=== PATIENT | female | born 1960 | race Caucasian/White ===

== ENCOUNTER → 2018-12-24 09:29 | Outpatient (CLI) | payer OTHER, SELFPAY ==
--- NOTE | 2018-12-24 09:33 | BI_ITS ---
MAMMOGRAPHY - BILATERAL SCREENING REASON FOR EXAM: Female, 58 years old. Routine annual screening examination. PERTINENT HISTORY: Non-contributory. TECHNIQUE: Digital bilateral breast alma (3D mammographic acquisition) in the CC and MLO projections. 2-D mediolateral oblique (MLO) and craniocaudad (CC) views of both breasts were obtained. CAD: Full Field Digital Mammography with Computer Added Detection was performed. COMPARISON: Comparison is made with prior examination of January 03, 2016 and July 06, 2012. FINDINGS: Breast Composition: There are scattered areas of fibroglandular density. There are no dominant masses or suspicious calcifications. Stable benign-appearing left axillary lymph nodes. No other significant abnormalities are identified. There has been no significant change since the prior study. BI/SCREENING MAMM (CAD), BILAT IMPRESSION: Stable bilateral screening mammogram. Yearly follow-up mammogram recommended. (A) ASSESSMENT CATEGORY: BIRADS Category 2: Benign. A letter regarding these results will be sent to the patient by the facility within 30 days. Approximately 10% of breast cancers are not detected by mammography. A normal mammogram should not delay biopsy of a clinically suspicious abnormality. [id number] Electronically Signed: Demian Mccartney, at 10:17 EDT , Service support ,
== END ==
PROVIDERS: Family Provider Family Medicine; PCP Family Medicine; Visit Provider Internal Medicine
DX: Z12.31 Encounter for screening mammogram for malignant neoplasm of breast (principal)
CPT/HCPCS: 77063; 77067

== ENCOUNTER 2019-01-02 08:07 | Emergency (ER) | payer OTHER, SELFPAY ==
[2019-01-02 08:08] VITALS: BP 157/102; PULSE 70; RESP 22; TEMP 36.7; O2SAT 97; BMI 34.3
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
[2019-01-02] MEDS: Morphine 4 MG/ML Syringe IV ×2 (08:27→11:22)
[2019-01-02] MEDS: diazePAM 5 MG Tablet PO (08:27)
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
[2019-01-02 09:01] LABS: Anion Gap 5 (5-15); BUN 22 mg/dL (7-18); Calcium,Total 8.8 mg/dL (8.5-10.1); Chloride 106 mmol/L (98-107); Creatinine, Serum 0.96 mg/dL (0.55-1.02); EST Glomerular Filtration Rate 64 mL/min (>60); Est Glom Filt Rate - Afr Amer 78 mL/min (>60); Estimated Creatinine Clearance 54.13 ml/min; Glucose 107 mg/dL (74-106); Potassium 4.3 mmol/L (3.5-5.1); Sodium Level 133 mmol/L (136-145)
[2019-01-02 09:09] VITALS: BP 151/106; PULSE 66; RESP 20; O2SAT 97
[2019-01-02 10:39] VITALS: BP 154/74; PULSE 76; RESP 20; O2SAT 97
--- NOTE | 2019-01-02 11:00 | NURSING ---
ACCEPTED AT [facility] THROUGH ER
--- NOTE | 2019-01-02 11:23 | NURSING ---
CALLED [facility] ETA IS 30 TO 45 MIN
--- NOTE | 2019-01-02 11:28 | CASEMGMT ---
According to [facility], patient can be transferred to [facility], [facility], [facility], [facility]. Frank Garcia RNCM
[2019-01-02 12:29] VITALS: BP 150/77; PULSE 77; RESP 18; O2SAT 96
== END 2019-01-02 12:30 | disposition home or self-care (01) ==
PROVIDERS: Emergency Provider Emergency Medicine; Family Provider Family Medicine; PCP Family Medicine
DX: S22.22XA Fracture of body of sternum, initial encounter for closed fracture (principal); S32.019A Unspecified fracture of first lumbar vertebra, initial encounter for closed fracture; F32.9 Major depressive disorder, single episode, unspecified; Z79.899 Other long term (current) drug therapy; V43.52XA Car driver injured in collision with other type car in traffic accident, initial encounter; Y93.I9 Activity, other involving external motion; Y92.410 Unspecified street and highway as the place of occurrence of the external cause; Y99.8 Other external cause status
CPT/HCPCS: 71275; 72131; 80048; 84484; 93005; 96374; 96376; 99285; J7030; Q9967

== ENCOUNTER 2022-08-09 12:16 | Emergency (ER) | payer OTHER, SELFPAY ==
[2022-08-09 12:17] VITALS: BP 194/116; PULSE 64; RESP 18; TEMP 36.3; O2SAT 99; BMI 35.2
--- NOTE | 2022-08-09 12:39 | ED.VIS.GI ---
HPI HPI - GI History of Present Illness Chief Complaint: Abd Pain Informant: patient Abdominal Pain/Flank Pain Onset: Today Context: Sudden Onset Timing: Continuous Quality: Cramping Location: Diffuse Worsened by: Nothing Relieved by: Nothing Nausea/Vomiting/Emesis GI Symptom: Positive for Nausea and Vomiting Quality: Positive for Nonbilious; Negative for Blood streaks, Coffee ground or Hematemesis Diarrhea/Melena/Hematochezia GI Symptom: Negative for Diarrhea, Melena or Hematochezia Associated Symptoms Associated Symptoms: Negative for Dysuria, Frequency or Hematuria Narrative Narrative: Patient presents with abdominal pain that began today. Patient states it woke her up around 4 AM today. Patient states it has been constant. Patient describes it as cramping. Patient states it is diffuse across her abdomen. Patient states nothing makes it better nothing makes it worse. Patient admits to some nausea and vomiting. Patient denies any hematemesis or coffee-ground emesis. Patient denies any diarrhea, melena, or hematochezia. Patient denies any urinary complaints. PFSH PFSH Home Medications citalopram 40 mg tablet 40 mg PO DAILY 12/19/13 [History Last Taken Unknown] levothyroxine 100 mcg tablet (Synthroid) 125 mcg PO DAILY 12/19/13 [History Last Taken Unknown] ondansetron 4 mg disintegrating tablet 4 mg PO Q8H PRN PRN Nausea #10 tabs 08/09/22 [Rx Last Taken Unknown] Allergy/AdvReac Type Severity Reaction Status Date / Time adhesive AdvReac Rash Verified 08/09/22 12:16 Surgical History (Updated 08/09/22 @ 12:[address] Adolfo Gonzalez DO) H/O section History of hysterectomy Social History Smoking Status: Former smoker ROS ROS ED Constitutional Constitutional ED: Reports chills and subjective; Denies fever(s) Eyes Eyes: Denies blurry vision or change in vision ENT ENT ED: Denies rhinorrhea or sore throat Cardiovascular Cardiovascular: Denies chest pain or palpitations Respiratory/Chest Respiratory/Chest: Denies cough or dyspnea Gastrointestinal Gastrointestinal: Reports abdominal pain, nausea and vomiting; Denies diarrhea or melena Genitourinary Genitourinary ED: Denies dysuria or hematuria Musculoskeletal Musculoskeletal: Denies back pain or neck pain Integumentary Denies abscess or rash Neurologic Neurologic: Reports headache(s); Denies weakness Allergic/Immunologic Allergic/Immunologic ED: Denies mouth swelling or urticaria EXAM Physical Exam Const Vital Signs: 08/09/22 12:17 Temperature 97.3 F L Temperature Source Temporal Pulse Rate 64 Respiratory Rate 18 Blood Pressure 194/116 H Blood Pressure Mean 142 Pulse Ox 99 Positive well nourished and well developed General Appearance ED: well developed HEENT Reports moist mucous membranes Neck supple and no JVD Resp normal respiratory effort and clear to auscultation bilaterally Cardio regular rate, regular rhythm and no murmurs GI normal to inspection, nondistended, normoactive bowel sounds Palpation: soft and tender epigastric, LUQ and RUQ; Negative for guarding or rebound tenderness present Extremity normal to inspection General Extremety ED: Negative for edema or tenderness General Extremity: Negative for edema Neuro oriented x3, CN's II-XII intact bilaterally and no sensory deficits noted Sensorium / Orientation: alert Motor Exam: strength 5/5 throughout Psych mental status grossly normal Skin no rashes or lesions noted MDM MDM MDM Narrative Medical decision making narrative: Patient was given IV fluids, morphine, and Zofran. CBC was within normal limits. Comprehensive metabolic profile was within normal limits. Lipase was normal. Urinalysis does not show any evidence of urinary tract infection or hematuria. CT scan of the abdomen pelvis was obtained. There is no acute abnormality noted. This was interpreted by the radiologist and reviewed by myself. Patient was advised of her findings. Patient is feeling better on reevaluation. Patient was instructed to start with a bland diet and advance her diet as tolerated. Patient was given a prescription for Zofran. Patient was instructed to follow-up with her primary care physician in 5 to 7 days. Patient was instructed return if worse in any way. Patient understood and was agreeable with the plan. All questions were answered. Lab Data Attestation: I reviewed the patient's lab results. Labs: Laboratory Results - last 24 hr 08/09/22 08/09/22 08/09/22 12:41 12:41 13:00 WBC 8.8 RBC 4.42 Hgb 14.1 Hct 42.7 MCV 96.6 MCH 31.9 MCHC 33.0 RDW Std Deviation 46.1 H RDW Coeff of Tadeo 12.9 Plt Count 375 MPV 9.7 Immature Gran % (Auto) 0.500 Neut % (Auto) 73.6 H Lymph % (Auto) 17.3 L Anson % (Auto) 6.4 Eos % (Auto) 1.4 Baso % (Auto) 0.8 Absolute Neuts (auto) 6.5 Absolute Lymphs (auto) 1.51 Nucleated RBC % 0 Sodium 136 Potassium 4.3 Chloride 102 Carbon Dioxide 24.0 Anion Gap 10 BUN 18 Creatinine 0.67 Estim Creat Clear Calc 73.86 Est GFR (MDRD) Af Amer 115 Est GFR (MDRD) Non-Af 95 BUN/Creatinine Ratio 26.7 H Glucose 126 H Calcium 9.3 Total Bilirubin 0.50 AST 19 ALT 28 Alkaline Phosphatase 101 Total Protein 7.7 Albumin 3.8 Globulin 3.9 Albumin/Globulin Ratio 1.0 Lipase 82 Urine Color Yellow Urine Clarity Clear Urine pH 7.0 Ur Specific P[place] 1.010 Urine Protein Negative Urine Glucose (UA) Normal Urine Ketones 50 H Urine Occult Blood 10 H Urine Nitrite Negative Urine Bilirubin Negative Urine Urobilinogen Normal Ur Leukocyte Esterase Negative Urine RBC 0 SEEN Urine WBC 0 SEEN Ur Squamous Epith Cells 0 SEEN Urine Bacteria 0 SEEN Urine Mucus 0 SEEN Radiography Diagnostic Testing: Clinical Impression(s) from Imaging Studies Abdomen/Pelvis CT 08/09/22 12:45 IMPRESSION: Normal enhanced CT of the abdomen and pelvis. Electronically Signed: Xiang Ziegler MD at 15:08 EDT , Discharge Plan Triage Chief Complaint: Abd Pain ED Provider: Adolfo Gonzalez Dx/Rx/DC Orders Clinical Impression: Abdominal pain, Nausea and vomiting Instructions: ED Abdominal Pain Unkn Cause Fem, ED Vomiting (Adult) Prescriptions: New ondansetron [ondansetron] 4 MG tablet 4 mg PO Q8H PRN PRN (Reason: Nausea) Qty: 10 0RF No Action citalopram 40 MG tablet 40 mg PO DAILY levothyroxine [Synthroid] 100 MCG tablet 125 mcg PO DAILY Primary Care Provider: Rosalba James Referrals: Sienna Ferreira MD [Med Staff - [employer]] - 3-5 Days Disposition Disposition: Home, Self Care
--- NOTE | 2022-08-09 12:45 | CT_ITS ---
STUDY: CT ABDOMEN AND PELVIS WITH CONTRAST REASON FOR EXAM: Female, 62 years old. Abdominal pain -- IV PO Contrast RADIATION DOSAGE (If Supplied By Facility): CTDIvol = ( 16.90 ) mGy, DLP = ( 1145.29 ) mGycm TECHNIQUE: Transaxial images were obtained from the dome of the diaphragm to the symphysis pubis with oral contrast. Oral and amp; IV Gastrografin and amp; 100mL Isovue-370 was administered. Sagittal and coronal images were reconstructed. Individualized dose optimization techniques were used for this CT. COMPARISON: 07/11/2015 FINDINGS: The visualized lung bases are unremarkable. The visualized portions of the heart are within normal limits. Normal liver. Normal gallbladder and extrahepatic biliary system. Normal spleen. Normal pancreas. Normal bilateral adrenal glands. Normal right kidney. Normal left kidney. Normal visualized stomach. Normal small intestine. Normal colon. The appendix is visualized and appears normal. Normal abdominal aorta. Normal inferior vena cava. Normal retroperitoneum. Normal urinary bladder. There is a small umbilical hernia containing fat. Chronic mild wedge compression fracture of L1 treated with vertebroplasty. CT/Abdomen/Pelvis WITH Contrast IMPRESSION: Normal enhanced CT of the abdomen and pelvis. Electronically Signed: Xiang Ziegler MD at 15:08 EDT ,
[2022-08-09 12:53] LABS: Absolute Lymphocyte Count 1.51 X10^3/uL (0.83-4.51); Absolute Neutrophil Count 6.5 X10^3/uL (2.0-7.7); Basophil# 0.07 X10^3/uL; Basophil% 0.8 % (0-1); Eosinophil# 0.12 X10^3/uL; Eosinophils% 1.4 % (0-5); Hematocrit 42.7 % (37-47); Hemoglobin 14.1 g/dL (12.0-15.0); Lymphocyte # 1.51 X10^3/ul (0.83-4.51); Lymphocyte % 17.3 % (19-41); Mean Corpuscular Hgb 31.9 pg (27.0-32.0); Mean Corpuscular Volume 96.6 fL (81-99); Mean Platelet Vol. 9.7 fl (6.2-12.0); Monocyte# 0.56 X10^3/uL; Monocyte% 6.4 % (0-10); NRBC Flagged by Analyzer 0 % (0-5); Neutrophil # 6.45 X10^3/uL (2.7-7.7); Neutrophil % 73.6 % (47-70); Platelet Count 375 K/mm3 (150-450); RBC Distribution Width CV 12.9 % (11.6-14.6); RBC Distribution Width SD 46.1 fl (35.1-43.9); Red Blood Count 4.42 M/mm3 (4.2-5.4); White Blood Count 8.8 K/mm3 (4.4-11.0)
[2022-08-09] MEDS: 0.9% Normal Saline 1,000 ML 1000 ML IV (13:01)
[2022-08-09] MEDS: Ondansetron 4 MG/2 ML Vial IV ×2 (13:01→13:44)
[2022-08-09] MEDS: Morphine 4 MG/ML Syringe IV ×2 (13:01→14:17)
[2022-08-09 13:06] LABS: Bacteria 0 SEEN /hpf (None Seen); Mucous, Urine 0 SEEN /hpf (<or=2+); Red Blood Cells-Urine 0 SEEN /hpf (0-5); Squamous Epithelial Cells - UA 0 SEEN /hpf (5-10); White Blood Cells 0 SEEN /hpf (0-5)
[2022-08-09 13:14] LABS: Color, Urine Yellow (Yellow); Glucose, Dipstick Normal (Normal); Ketone-Dipstick 50 mg/dl (Negative); Leukocyte Esterase-Dipstick Negative /ul (Negative); Nitrite-Dipstick Negative (Negative); Occult Blood-Urine 10 /ul (Negative); Protein-Dipstick Negative (Negative); Urine Bilirubin Dipstick Negative (Negative); Urine Clarity Clear (Clear); Urine Urobilinogen Normal (Normal)
[2022-08-09 13:15] LABS: AST(SGOT) 19 U/L (15-37); Alanine Aminotransfer ALT/SGPT 28 U/L (13-56); Albumin, Serum 3.8 g/dL (3.2-5.0); Alkaline Phosphatase 101 U/L (45-117); Anion Gap 10 (5-15); BUN 18 mg/dL (7-18); BUN/Creat Ratio 26.7 RATIO (10-20); Calcium,Total 9.3 mg/dL (8.5-10.1); Chloride 102 mmol/L (98-107); Creatinine, Serum 0.67 mg/dL (0.55-1.02); EST Glomerular Filtration Rate 95 mL/min (>60); Est Glom Filt Rate - Afr Amer 115 mL/min (>60); Estimated Creatinine Clearance 73.86 ml/min; Globulin 3.9 g/dL (2.2-4.2); Glucose 126 mg/dL (74-106); Lipase 82 U/L (73-393); Potassium 4.3 mmol/L (3.5-5.1); Protein, Total 7.7 g/dL (6.4-8.2); Sodium Level 136 mmol/L (136-145)
== END 2022-08-09 15:40 | disposition home or self-care (01) ==
PROVIDERS: Emergency Provider Emergency Medicine; PCP Internal Medicine; Visit Provider Emergency Medicine
DX: R11.2 Nausea with vomiting, unspecified (principal); R10.9 Unspecified abdominal pain; Z87.891 Personal history of nicotine dependence
CPT/HCPCS: 74177; 80053; 81001; 83690; 85025; 96361; 96374; 96375; 96376; 99283; Q9967; A4216; J2405

== ENCOUNTER → 2022-09-28 | Outpatient (CLI) | payer OTHER, SELFPAY ==
[2022-09-28 12:26] LABS: Absolute Neutrophil Count 12.7 X10^3/uL (2.0-7.7); Basophil# 0.07 X10^3/uL; Basophil% 0.4 % (0-1); Eosinophil# 0.25 X10^3/uL; Eosinophils% 1.6 % (0-5); Hematocrit 41.1 % (37-47); Hemoglobin 13.8 g/dL (12.0-15.0); Lymphocyte % 11.5 % (19-41); Mean Corp Hgb Conc 33.6 g/dL (32-36); Mean Corpuscular Hgb 32.9 pg (27.0-32.0); Mean Corpuscular Volume 97.9 fL (81-99); Mean Platelet Vol. 10.3 fl (6.2-12.0); Monocyte# 0.81 X10^3/uL; Monocyte% 5.2 % (0-10); NRBC Flagged by Analyzer 0 % (0-5); Platelet Count 389 K/mm3 (150-450); RBC Distribution Width SD 46.1 fl (35.1-43.9); White Blood Count 15.7 K/mm3 (4.4-11.0)
[2022-09-28 13:03] LABS: Vitamin D,25 Hydroxy 29.2 ng/mL
[2022-09-28 13:23] LABS: ALB/GLOB Ratio 1.1 RATIO (0.9-2.4); AST(SGOT) 15 U/L (15-37); Alanine Aminotransfer ALT/SGPT 27 U/L (13-56); Albumin, Serum 3.7 g/dL (3.2-5.0); Alkaline Phosphatase 89 U/L (45-117); Anion Gap 9 (5-15); BUN 11 mg/dL (7-18); BUN/Creat Ratio 19.6 RATIO (10-20); Chloride 108 mmol/L (98-107); Cholesterol 248 mg/dL (200); Creatinine, Serum 0.56 mg/dL (0.55-1.02); EST Glomerular Filtration Rate 117 mL/min (>60); Est Glom Filt Rate - Afr Amer 142 mL/min (>60); Globulin 3.5 g/dL (2.2-4.2); Glucose 107 mg/dL (74-106); High Density Lipoprotein 78 mg/dL; Potassium 4.6 mmol/L (3.5-5.1); Protein, Total 7.2 g/dL (6.4-8.2); Sodium Level 138 mmol/L (136-145); T4 Free Direct 1.18 ng/dL (0.76-1.46); Thyroid Stim Hormone (TSH) 0.02 uIU/mL (0.358-3.74); Triglycerides 118 mg/dL; Very Low Density Lipoprotein 24 mg/dL (5-40)
[2022-09-29 14:55] LABS: Hemoglobin A1c 5.6 % (3.8-5.6)
[2022-09-30 11:03] LABS: Thyroglobulin Antibody 15.4 IU/mL (0.0-0.9); Thyroid Peroxidase AB 183 IU/mL (0-34)
== END | disposition home or self-care (01) ==
LOC: MFPLAB 10:25
PROVIDERS: PCP Family Medicine; Visit Provider Family Medicine
DX: E03.9 Hypothyroidism, unspecified (principal); M85.80 Other specified disorders of bone density and structure, unspecified site; R73.09 Other abnormal glucose
CPT/HCPCS: 36415; 80053; 80061; 82306; 83036; 84439; 84443; 85025; 86376; 86800

== ENCOUNTER → 2022-10-06 | Outpatient (CLI) | payer OTHER, SELFPAY ==
--- NOTE | 2022-10-06 13:39 | US_ITS ---
STUDY: THYROID ULTRASOUND REASON FOR EXAM: Female, 62 years old. nodule -- HAS CT AFTER TECHNIQUE: Ultrasound evaluation of the thyroid was performed with real-time and static mora-scale imaging. COMPARISON: None. FINDINGS: RIGHT LOBE: The right lobe of the thyroid gland measures 3.7 x 1.4 x 1.0 cm. There is a heterogeneous echotexture. There are no demonstrated solid, cystic or complex lesions. LEFT LOBE: The left lobe of the thyroid gland measures 2.5 x 1.4 x 1.3 cm. There is a heterogeneous echotexture. There are no demonstrated solid, cystic or complex lesions. ISTHMUS: The isthmus measures 3 mm. The regional lymph nodes are normal. US/Thyroid IMPRESSION: 1. Small/hypoplastic thyroid gland with a heterogeneous echotexture but no dominant or focal nodules or other lesions are present. This is likely sequela of chronic thyroiditis or possibly posttreatment related changes. Electronically Signed: Harry Love MD at 14:40 EST ,
--- NOTE | 2022-10-06 13:39 | CT_ITS ---
EXAM: CT CHEST, LUNG CANCER SCREENING WITHOUT INTRAVENOUS CONTRAST CLINICAL INDICATION: history of tobacco use TECHNIQUE: Helically acquired images were obtained of the chest without intravenous contrast using low dose (LDCT) lung cancer screening protocol. This CT exam was performed using one or more of the following dose reduction techniques: automated exposure control, adjustment of the mA and/or kV according to patient size, and/or use of iterative reconstruction technique. This report was created using [employer] report generation technology. COMPARISON: CTA chest dated 01/02/2019 FINDINGS: LUNGS AND PLEURAL SPACES: Unremarkable. No mass. No consolidation or edema. No pleural effusion or thickening. No pneumothorax. HEART: Unremarkable. Heart size is normal. No pericardial effusion. No significant coronary artery calcifications. MEDIASTINUM: Unremarkable. No mediastinal or hilar adenopathy. Esophagus is unremarkable. No hiatal hernia. THYROID: Unremarkable. No thyroid lesions. BONES/JOINTS: Unremarkable. No suspicious lytic or blastic abnormality. VASCULATURE: Unremarkable. Thoracic aorta is non-dilated. LYMPH NODES: Unremarkable. No enlarged lymph nodes. CT/Low Dose CT Lung Screening IMPRESSION: 1. Lung-RADS score: 1 - Recommend continued annual screening with low-dose CT (LDCT) in 12 months. 2. No acute pulmonary abnormality. Electronically Signed: Sonny Martinez MD at 0:03 [facility] ,
== END | disposition home or self-care (01) ==
LOC: CT 13:38
PROVIDERS: PCP Family Medicine; Referring Provider Family Medicine; Visit Provider Family Medicine
DX: E04.1 Nontoxic single thyroid nodule (principal); Z87.891 Personal history of nicotine dependence
CPT/HCPCS: 71271; 76536

== ENCOUNTER → 2022-10-22 | Outpatient (CLI) | payer OTHER, SELFPAY ==
[2022-10-22 12:22] LABS: Absolute Lymphocyte Count 1.31 X10^3/uL (0.83-4.51); Absolute Neutrophil Count 5.2 X10^3/uL (2.0-7.7); Basophil# 0.05 X10^3/uL; Basophil% 0.7 % (0-1); Eosinophil# 0.27 X10^3/uL; Eosinophils% 3.6 % (0-5); Hematocrit 40.9 % (37-47); Hemoglobin 13.4 g/dL (12.0-15.0); Lymphocyte # 1.31 X10^3/ul (0.83-4.51); Lymphocyte % 17.6 % (19-41); Mean Corp Hgb Conc 32.8 g/dL (32-36); Mean Corpuscular Volume 97.6 fL (81-99); Mean Platelet Vol. 10.6 fl (6.2-12.0); Monocyte# 0.61 X10^3/uL; Monocyte% 8.2 % (0-10); NRBC Flagged by Analyzer 0 % (0-5); Neutrophil # 5.18 X10^3/uL (2.7-7.7); Neutrophil % 69.6 % (47-70); Platelet Count 338 K/mm3 (150-450); RBC Distribution Width CV 13.3 % (11.6-14.6); RBC Distribution Width SD 47.6 fl (35.1-43.9); Red Blood Count 4.19 M/mm3 (4.2-5.4); White Blood Count 7.4 K/mm3 (4.4-11.0)
== END | disposition home or self-care (01) ==
LOC: MFPLAB 10:07
PROVIDERS: PCP Family Medicine; Visit Provider Family Medicine
DX: D72.829 Elevated white blood cell count, unspecified (principal)
CPT/HCPCS: 36415; 85025

== ENCOUNTER → 2022-11-05 | Outpatient (CLI) | payer OTHER, SELFPAY ==
--- NOTE | 2022-11-05 13:03 | BD_ITS ---
STUDY: DUAL ENERGY X-RAY ABSORPTIOMETRY / DXA REASON FOR EXAM: Female, 62 years old. 733.90OsteopeniaBONE DENSITY REASON FOR EXAM TECHNIQUE: Bone Mineral Density (BMD) measurements of lumbar spine and bilateral hips were obtained. COMPARISON: None. FINDINGS: Lumbar Spine (L1-L4): g/cm2 (0.793) / T-score (-2.6) / Z-score (-1.1) Findings are suggestive of osteoporosis with a high fracture risk. Left Femur Total: g/cm2 (0.681) / T-score (-2.1) / Z-score (-1.2) Left Femoral Neck: g/cm2 (0.582) / T-score (-2.4) / Z-score (-1.1) Right Femur Total: g/cm2 (0.741) / T-score (-1.6) / Z-score (-0.7) Right Femoral Neck: g/cm2 (0.577) / T-score (-2.5) / Z-score (-1.1) BD/Dexa Bone Density Study IMPRESSION: The patient is considered osteoporotic as outlined below according to World Angel Organization (WHO) criteria with a high fracture risk. Reference Information: The T-score is the number of standard deviations above or below the standard which is normal for young adults at their peak bone mineral density. The World Health Organization (WHO) interprets the T-scores as follows: Above -1 Normal bone density Between -1 and -2.5 Osteopenia Equal to / or below -2.5 Osteoporosis As a practical clinical guideline, osteopenia may be graded as follows: Mild -1 through -1.5 Moderate -1.6 through -2.0 Severe -2.1 through -2.4 The Z-score is the number of standard deviations above or below age-matched controls. A Z-score of less than -1.5 would be considered abnormal. References: 1. NIH Osteoporosis and Related Bone Diseases www osteo.org 2. International Society for Clinical Densitometry www iscd.org 3. National Osteoporosis Foundation www nof.org Electronically Signed: Demian Mccartney MD at 13:05 EST ,
== END | disposition home or self-care (01) ==
LOC: OPBD 12:48
PROVIDERS: PCP Family Medicine; Visit Provider Family Medicine
DX: M81.0 Age-related osteoporosis without current pathological fracture (principal); M85.80 Other specified disorders of bone density and structure, unspecified site
CPT/HCPCS: 77080

== ENCOUNTER → 2022-12-02 | Outpatient (CLI) | payer OTHER, SELFPAY ==
[2022-12-02 15:39] LABS: Absolute Lymphocyte Count 1.57 X10^3/uL (0.83-4.51); Basophil# 0.07 X10^3/uL; Basophil% 1.1 % (0-1); Eosinophils% 4.5 % (0-5); Hematocrit 37.8 % (37-47); Hemoglobin 12.2 g/dL (12.0-15.0); Lymphocyte # 1.57 X10^3/ul (0.83-4.51); Lymphocyte % 23.7 % (19-41); Mean Corp Hgb Conc 32.3 g/dL (32-36); Mean Corpuscular Hgb 31.9 pg (27.0-32.0); Mean Corpuscular Volume 98.7 fL (81-99); Monocyte# 0.62 X10^3/uL; Monocyte% 9.4 % (0-10); NRBC Flagged by Analyzer 0 % (0-5); Neutrophil # 4.04 X10^3/uL (2.7-7.7); Platelet Count 313 K/mm3 (150-450); RBC Distribution Width CV 12.9 % (11.6-14.6); RBC Distribution Width SD 46.5 fl (35.1-43.9); Red Blood Count 3.83 M/mm3 (4.2-5.4); White Blood Count 6.6 K/mm3 (4.4-11.0)
[2022-12-02 15:58] LABS: ALB/GLOB Ratio 0.9 RATIO (0.9-2.4); AST(SGOT) 18 U/L (15-37); Alanine Aminotransfer ALT/SGPT 27 U/L (13-56); Albumin, Serum 3.2 g/dL (3.2-5.0); Alkaline Phosphatase 75 U/L (45-117); Anion Gap 7 (5-15); BUN 14 mg/dL (7-18); Calcium,Total 8.8 mg/dL (8.5-10.1); Chloride 108 mmol/L (98-107); Cholesterol 192 mg/dL (200); Creatinine, Serum 0.67 mg/dL (0.55-1.02); EST Glomerular Filtration Rate 96 mL/min (>60); Est Glom Filt Rate - Afr Amer 116 mL/min (>60); Globulin 3.7 g/dL (2.2-4.2); Glucose 103 mg/dL (74-106); High Density Lipoprotein 73 mg/dL; Potassium 3.9 mmol/L (3.5-5.1); Protein, Total 6.9 g/dL (6.4-8.2); Sodium Level 140 mmol/L (136-145); T4 Free Direct 1.33 ng/dL (0.76-1.46); Thyroid Stim Hormone (TSH) < 0.01 uIU/mL (0.358-3.74); Triglycerides 91 mg/dL; Very Low Density Lipoprotein 18 mg/dL (5-40)
[2022-12-02 16:12] LABS: Hemoglobin A1c 5.6 % (3.8-5.6)
[2022-12-02 16:20] LABS: Vitamin D,25 Hydroxy 38.5 ng/mL
== END | disposition home or self-care (01) ==
PROVIDERS: PCP Family Medicine; Referring Provider Family Medicine; Visit Provider Family Medicine
DX: E78.5 Hyperlipidemia, unspecified (principal); R73.09 Other abnormal glucose; E03.8 Other specified hypothyroidism; M85.80 Other specified disorders of bone density and structure, unspecified site
CPT/HCPCS: 36415; 80053; 80061; 82306; 83036; 84439; 84443; 85025

== ENCOUNTER 2022-12-04 15:34 | Outpatient (CLI) | payer OTHER, SELFPAY ==
[2022-12-04 19:42] LABS: Rubella IgG Reactive (Nonreactive)
[2022-12-07 12:56] LABS: Rubeola IgG Ab > 300.0 AU/mL (Immune >16.4)
== END 2022-12-04 23:59 | disposition home or self-care (01) ==
LOC: MFPLAB 15:38
PROVIDERS: PCP Family Medicine; Referring Provider Family Medicine; Visit Provider Family Medicine
DX: Z78.9 Other specified health status (principal)
CPT/HCPCS: 36415; 86735; 86762; 86765

== ENCOUNTER → 2023-01-22 | Outpatient (CLI) | payer OTHER, SELFPAY ==
[2023-01-22 12:58] LABS: Absolute Lymphocyte Count 1.58 X10^3/uL (0.83-4.51); Absolute Neutrophil Count 2.9 X10^3/uL (2.0-7.7); Basophil# 0.08 X10^3/uL; Basophil% 1.5 % (0-1); Eosinophil# 0.35 X10^3/uL; Eosinophils% 6.5 % (0-5); Hematocrit 39.7 % (37-47); Hemoglobin 12.6 g/dL (12.0-15.0); Lymphocyte # 1.58 X10^3/ul (0.83-4.51); Lymphocyte % 29.3 % (19-41); Mean Corp Hgb Conc 31.7 g/dL (32-36); Mean Corpuscular Hgb 31.4 pg (27.0-32.0); Mean Platelet Vol. 10.9 fl (6.2-12.0); Monocyte# 0.52 X10^3/uL; Monocyte% 9.6 % (0-10); NRBC Flagged by Analyzer 0 % (0-5); Neutrophil # 2.85 X10^3/uL (2.7-7.7); Neutrophil % 52.9 % (47-70); Platelet Count 350 K/mm3 (150-450); RBC Distribution Width CV 13.2 % (11.6-14.6); RBC Distribution Width SD 48.2 fl (35.1-43.9); Red Blood Count 4.01 M/mm3 (4.2-5.4); White Blood Count 5.4 K/mm3 (4.4-11.0)
[2023-01-22 13:04] LABS: Vitamin D,25 Hydroxy 43.4 ng/mL
[2023-01-22 13:10] LABS: ALB/GLOB Ratio 0.9 RATIO (0.9-2.4); AST(SGOT) 23 U/L (15-37); Alanine Aminotransfer ALT/SGPT 31 U/L (13-56); Albumin, Serum 3.5 g/dL (3.2-5.0); Alkaline Phosphatase 80 U/L (45-117); Anion Gap 8 (5-15); BUN 11 mg/dL (7-18); BUN/Creat Ratio 19.7 RATIO (10-20); Calcium,Total 8.8 mg/dL (8.5-10.1); Chloride 109 mmol/L (98-107); Cholesterol 196 mg/dL (200); Creatinine, Serum 0.56 mg/dL (0.55-1.02); EST Glomerular Filtration Rate 117 mL/min (>60); Est Glom Filt Rate - Afr Amer 142 mL/min (>60); Globulin 3.8 g/dL (2.2-4.2); Glucose 90 mg/dL (74-106); High Density Lipoprotein 81 mg/dL; Potassium 4.5 mmol/L (3.5-5.1); Protein, Total 7.3 g/dL (6.4-8.2); Sodium Level 141 mmol/L (136-145); T4 Free Direct 1.21 ng/dL (0.76-1.46); Thyroid Stim Hormone (TSH) 0.02 uIU/mL (0.358-3.74); Triglycerides 92 mg/dL; Very Low Density Lipoprotein 18 mg/dL (5-40)
== END | disposition home or self-care (01) ==
LOC: MFPLAB 10:26
PROVIDERS: PCP Family Medicine; Referring Provider Family Medicine; Visit Provider Family Medicine
DX: E03.8 Other specified hypothyroidism (principal); M85.80 Other specified disorders of bone density and structure, unspecified site; E78.5 Hyperlipidemia, unspecified; D72.829 Elevated white blood cell count, unspecified
CPT/HCPCS: 36415; 80053; 80061; 82306; 84439; 84443; 85025

== ENCOUNTER → 2023-05-10 | Outpatient (CLI) | payer OTHER, SELFPAY ==
--- NOTE | 2023-05-10 15:18 | BI_ITS ---
MAMMOGRAPHY - BILATERAL SCREENING REASON FOR EXAM: Female, 63 years old. Routine annual screening examination. PERTINENT HISTORY: Non-contributory. TECHNIQUE: Digital bilateral breast peggy (3D mammographic acquisition) in the CC and MLO projections. 2-D mediolateral oblique (MLO) and craniocaudad (CC) views of both breasts were obtained. CAD: Full Field Digital Mammography with Computer Added Detection was performed. COMPARISON: Comparison is made with prior study of December 24, 2018 and January 03, 2016. FINDINGS: Breast Composition: There are scattered areas of fibroglandular density. There are no dominant masses or suspicious calcifications. Stable small benign-appearing left axillary lymph node. No other significant abnormalities are identified. There has been no significant change since the prior study. BI/SCRN MAMM (CAD)W/PEGGY BILAT IMPRESSION: Stable bilateral screening mammogram. Yearly follow-up mammogram recommended. (A) ASSESSMENT CATEGORY: BIRADS Category 2: Benign. A letter regarding these results will be sent to the patient by the facility within 30 days. Approximately 10% of breast cancers are not detected by mammography. A normal mammogram should not delay biopsy of a clinically suspicious abnormality. [id number] Electronically Signed: Demian Mccartney MD at 8:36 EDT ,
== END | disposition home or self-care (01) ==
LOC: OPBI 15:17
PROVIDERS: PCP Family Medicine; Referring Provider Family Medicine; Visit Provider Family Medicine
DX: Z12.31 Encounter for screening mammogram for malignant neoplasm of breast (principal)
CPT/HCPCS: 77063; 77067

== ENCOUNTER → 2023-07-19 | Outpatient (CLI) | payer BC, SELFPAY ==
--- NOTE | 2023-07-19 10:11 | RAD_ITS ---
STUDY: X-RAY - LEFT SHOULDER REASON FOR EXAM: Female, 63 years old. Recent fall. Pain and limitation of movement. TECHNIQUE: 4 view(s) of the shoulder. COMPARISON: None. FINDINGS: There is moderate degenerative arthrosis of the glenohumeral articulation. Normal acromioclavicular joint. Normal acromion. Nondisplaced fracture of the distal left clavicle. Degenerative spur formation along the inferior medial aspect of the proximal humeral head. The soft tissue structures are unremarkable. Normal visualized pulmonary apex. RAD/Shoulder min 2 Views IMPRESSION: Nondisplaced fracture of the lateral aspect of the left clavicle with degenerative changes of the glenohumeral joint. Electronically Signed: Demian Mccartney MD at 10:55 EDT ,
== END | disposition home or self-care (01) ==
PROVIDERS: PCP Family Medicine; Referring Provider Nurse Practitioner Family; Visit Provider Nurse Practitioner Family
DX: M25.512 Pain in left shoulder (principal)
CPT/HCPCS: 73030

== ENCOUNTER → 2023-09-08 | Outpatient (CLI) | payer BC, SELFPAY ==
[2023-09-08 17:40] LABS: Absolute Lymphocyte Count 1.68 X10^3/uL (0.83-4.51); Absolute Neutrophil Count 4.4 X10^3/uL (2.0-7.7); Basophil# 0.05 X10^3/uL; Basophil% 0.7 % (0-1); Eosinophil# 0.23 X10^3/uL; Eosinophils% 3.4 % (0-5); Hematocrit 38.5 % (37-47); Hemoglobin 12.5 g/dL (12.0-15.0); Lymphocyte # 1.68 X10^3/ul (0.83-4.51); Lymphocyte % 24.9 % (19-41); Mean Corp Hgb Conc 32.5 g/dL (32-36); Mean Corpuscular Hgb 32.3 pg (27.0-32.0); Mean Corpuscular Volume 99.5 fL (81-99); Mean Platelet Vol. 10.2 fl (6.2-12.0); Monocyte# 0.41 X10^3/uL; Monocyte% 6.1 % (0-10); NRBC Flagged by Analyzer 0 % (0-5); Neutrophil # 4.35 X10^3/uL (2.7-7.7); Neutrophil % 64.6 % (47-70); Platelet Count 331 K/mm3 (150-450); RBC Distribution Width CV 12.4 % (11.6-14.6); RBC Distribution Width SD 44.8 fl (35.1-43.9); Red Blood Count 3.87 M/mm3 (4.2-5.4); White Blood Count 6.7 K/mm3 (4.4-11.0)
[2023-09-08 18:00] LABS: ALB/GLOB Ratio 0.9 RATIO (0.9-2.4); AST(SGOT) 16 U/L (15-37); Alanine Aminotransfer ALT/SGPT 25 U/L (13-56); Albumin, Serum 3.5 g/dL (3.2-5.0); Alkaline Phosphatase 73 U/L (45-117); Anion Gap 9 (5-15); BUN 14 mg/dL (7-18); BUN/Creat Ratio 18.7 RATIO (10-20); Calcium,Total 8.5 mg/dL (8.5-10.1); Chloride 106 mmol/L (98-107); Cholesterol 237 mg/dL (200); Creatinine, Serum 0.75 mg/dL (0.55-1.02); EST Glomerular Filtration Rate 84 mL/min (>60); Est Glom Filt Rate - Afr Amer 101 mL/min (>60); Globulin 3.7 g/dL (2.2-4.2); Glucose 108 mg/dL (74-106); High Density Lipoprotein 84 mg/dL; Potassium 3.9 mmol/L (3.5-5.1); Protein, Total 7.2 g/dL (6.4-8.2); Sodium Level 140 mmol/L (136-145); T4 Free Direct 1.37 ng/dL (0.76-1.46); Thyroid Stim Hormone (TSH) 0.01 uIU/mL (0.358-3.74); Triglycerides 110 mg/dL; Very Low Density Lipoprotein 22 mg/dL (5-40)
[2023-09-08 18:07] LABS: Vitamin D,25 Hydroxy 53.6 ng/mL
== END | disposition home or self-care (01) ==
LOC: MFPLAB 15:52
PROVIDERS: PCP Family Medicine; Visit Provider Family Medicine
DX: E03.8 Other specified hypothyroidism (principal); E55.9 Vitamin D deficiency, unspecified; E78.5 Hyperlipidemia, unspecified
CPT/HCPCS: 36415; 80053; 80061; 82306; 84439; 84443; 85025

== ENCOUNTER → 2024-01-20 | Outpatient (CLI) | payer BC, SELFPAY ==
[2024-01-20 17:37] LABS: Absolute Lymphocyte Count 1.86 X10^3/uL (0.83-4.51); Basophil# 0.09 X10^3/uL; Basophil% 1.3 % (0-1); Eosinophil# 0.16 X10^3/uL; Eosinophils% 2.4 % (0-5); Hematocrit 38.7 % (37-47); Hemoglobin 12.9 g/dL (12.0-15.0); Lymphocyte # 1.86 X10^3/ul (0.83-4.51); Lymphocyte % 27.9 % (19-41); Mean Corp Hgb Conc 33.3 g/dL (32-36); Mean Platelet Vol. 11.3 fl (6.2-12.0); Monocyte# 0.51 X10^3/uL; Monocyte% 7.6 % (0-10); NRBC Flagged by Analyzer 0 % (0-5); Neutrophil # 4.04 X10^3/uL (2.7-7.7); Neutrophil % 60.7 % (47-70); Platelet Count 295 K/mm3 (150-450); RBC Distribution Width CV 12.7 % (11.6-14.6); RBC Distribution Width SD 45.5 fl (35.1-43.9); Red Blood Count 4.03 M/mm3 (4.2-5.4); White Blood Count 6.7 K/mm3 (4.4-11.0)
[2024-01-20 17:57] LABS: Vitamin D,25 Hydroxy 57.9 ng/mL
[2024-01-20 18:22] LABS: ALB/GLOB Ratio 0.9 RATIO (0.9-2.4); AST(SGOT) 27 U/L (15-37); Alanine Aminotransfer ALT/SGPT 26 U/L (13-56); Albumin, Serum 3.2 g/dL (3.2-5.0); Alkaline Phosphatase 72 U/L (45-117); Anion Gap 6 (5-15); BUN 11 mg/dL (7-18); BUN/Creat Ratio 17.4 RATIO (10-20); Chloride 109 mmol/L (98-107); Cholesterol 249 mg/dL (200); Creatinine, Serum 0.63 mg/dL (0.55-1.02); EST Glomerular Filtration Rate 101 mL/min (>60); Est Glom Filt Rate - Afr Amer 122 mL/min (>60); Globulin 3.5 g/dL (2.2-4.2); Glucose 112 mg/dL (74-106); High Density Lipoprotein 68 mg/dL; Potassium 3.7 mmol/L (3.5-5.1); Protein, Total 6.7 g/dL (6.4-8.2); Sodium Level 139 mmol/L (136-145); T4 Free Direct 1.36 ng/dL (0.76-1.46); Thyroid Stim Hormone (TSH) 0.01 uIU/mL (0.358-3.74); Triglycerides 89 mg/dL; Very Low Density Lipoprotein 18 mg/dL (5-40)
== END | disposition home or self-care (01) ==
LOC: MFPLAB 16:47
PROVIDERS: PCP Family Medicine; Visit Provider Family Medicine
DX: E03.8 Other specified hypothyroidism (principal); E55.9 Vitamin D deficiency, unspecified
CPT/HCPCS: 36415; 80053; 80061; 82306; 84439; 84443; 85025

== ENCOUNTER → 2024-05-19 | Outpatient (CLI) | payer OTHER, SELFPAY ==
[2024-05-19 16:34] LABS: Vitamin D,25 Hydroxy 56.9 ng/mL
[2024-05-19 16:46] LABS: T4 Free Direct 0.97 ng/dL (0.76-1.46); Thyroid Stim Hormone (TSH) 0.06 uIU/mL (0.358-3.74)
== END | disposition home or self-care (01) ==
LOC: BFHLAB 13:24
PROVIDERS: PCP Nurse Practitioner Family; Referring Provider Nurse Practitioner Family; Visit Provider Nurse Practitioner Family
DX: E03.9 Hypothyroidism, unspecified (principal); E55.9 Vitamin D deficiency, unspecified
CPT/HCPCS: 36415; 82306; 84439; 84443

== ENCOUNTER → 2024-05-25 | Outpatient (CLI) | payer OTHER, SELFPAY ==
--- NOTE | 2024-05-25 13:10 | BI_ITS ---
MAMMOGRAPHY - BILATERAL SCREENING 3-D TOMOSYNTHESIS REASON FOR EXAM: Female, 64 years old. SCREENING PERTINENT HISTORY: No significant family history. TECHNIQUE: 2-D mammograms and 3-D Tomosynthesis of the breast (s) were performed. CAD was performed. COMPARISON: 05/25/2024 FINDINGS: The breast composition is Extermely dense tissue. Scattered benign calcifications are seen. No dense spiculated masses or suspicious microcalcifications are identified. No architectural distortion is identified. There is no skin thickening or retraction. There has been no significant change since the prior study. BI/SCRN MAMM (CAD)W/PEGGY BILAT IMPRESSION: No mammographic signs of malignancy. Routine yearly mammograms recommended. ASSESSMENT CATEGORY: BIRADS Category 1: Negative. A letter regarding these results will be sent to the patient by the facility within 30 days. FOLLOW UP RECOMMENDATION: Yearly follow up mammogram recommended. (A) Approximately 10% of breast cancers are not detected by mammography. A normal mammogram should not delay biopsy of a clinically suspicious abnormality. Electronically Signed: Xiang Ziegler MD at 13:58 EDT ,
== END | disposition home or self-care (01) ==
LOC: OPBI 13:08
PROVIDERS: PCP Nurse Practitioner Family; Referring Provider Nurse Practitioner Family; Visit Provider Nurse Practitioner Family
DX: Z12.31 Encounter for screening mammogram for malignant neoplasm of breast (principal)
CPT/HCPCS: 77063; 77067

== ENCOUNTER → 2024-07-04 | Outpatient (CLI) | payer OTHER, SELFPAY ==
[2024-07-04 15:44] LABS: T4 Free Direct 0.99 ng/dL (0.76-1.46); Thyroid Stim Hormone (TSH) 0.083 uIU/mL (0.358-3.740)
== END | disposition home or self-care (01) ==
PROVIDERS: PCP Nurse Practitioner Family; Referring Provider Nurse Practitioner Family; Visit Provider Nurse Practitioner Family
DX: E03.9 Hypothyroidism, unspecified (principal)
CPT/HCPCS: 36415; 84439; 84443

== ENCOUNTER → 2024-09-01 | Outpatient (CLI) | payer OTHER, SELFPAY ==
[2024-09-01 12:40] LABS: T4 Free Direct 0.75 ng/dL (0.76-1.46)
== END | disposition home or self-care (01) ==
LOC: BFHLAB 10:33
PROVIDERS: PCP Nurse Practitioner Family; Referring Provider Nurse Practitioner Family; Visit Provider Nurse Practitioner Family
DX: E03.9 Hypothyroidism, unspecified (principal)
CPT/HCPCS: 36415; 84439; 84443

== ENCOUNTER → 2024-12-29 | Outpatient (CLI) | payer OTHER, SELFPAY ==
[2025-01-05 13:08] LABS: Almond <0.10 kU/L (Class 0); Clam <0.10 kU/L (Class 0); Codfish <0.10 kU/L (Class 0); Corn <0.10 kU/L (Class 0); Egg, White <0.10 kU/L (Class 0); Milk (Cow) <0.10 kU/L (Class 0); Peanut <0.10 kU/L (Class 0); SCALLOP <0.10 kU/L (Class 0); SESAME SEED <0.10 kU/L (Class 0); Shrimp <0.10 kU/L (Class 0); Soybean <0.10 kU/L (Class 0); Walnut, (Food) <0.10 kU/L (Class 0); Wheat <0.10 kU/L (Class 0)
== END | disposition home or self-care (01) ==
LOC: MTLAB 11:14
PROVIDERS: PCP Nurse Practitioner Family; Referring Provider Nurse Practitioner Family; Visit Provider Nurse Practitioner Family
DX: R19.7 Diarrhea, unspecified (principal); K59.00 Constipation, unspecified
CPT/HCPCS: 36415; 86003

== ENCOUNTER 2025-01-05 07:01 | Day surgery (SDC) | payer OTHER, SELFPAY ==
[2025-01-05] VITALS (9 sets, daily range): BP systolic 122–163; BP diastolic 73–84; PULSE 56–71; RESP 16; TEMP 36.3–36.8; O2SAT 94–98; BMI 27.7
--- NOTE | 2025-01-05 07:26 | HP.PCM_ITS ---
History and Physical Date of Admission: 01/05/25 Intake Vital Signs 08/09/2212:17 12/19/2507:38 Height 5 ft 3 in 5 ft 3 in Weight: 169 lb BMI 29.9 BP 127/89 H Blood Pressure Location Rt brachial Position Sitting Respiration 18 Pulse 71 Pulse Source Monitor Temp 98.0 F Temp Source Temporal Pulse Oximetry (%) 100 Oxygen Delivery Method room air Intake Visit Reasons: CHANGES IN BOWELS Chief Complaint: change in bowels Is patient in pain?: No Allergies adhesive Adverse Reaction (Verified 12/18/24 08:38) Rash Medications ?Medication ?Instructions ?Recorded ?Confirmed ?Type alendronate 70 mg tablet 70 mg PO QWEEK 12/18/24 History docusate sodium 50 mg capsule 50 mg PO BID 12/18/24 12/18/24 History ferrous sulfate 325 mg (65 mg 325 mg PO QDAY 12/18/24 12/18/24 History iron) tablet levothyroxine 75 mcg tablet 75 mcg PO QAM 12/18/24 History omega 9-lno-zap-fish oil 300 1 cap PO QDAY 12/18/24 12/18/24 History mg-1,000 mg capsule (Fish Oil) PFS Medical History (Updated 12/18/24 @ 09:[address] Sunil Lerner MD) Constipation Hemorrhoid Surgical History History of hysterectomy H/O section Social History (Updated 12/18/24 @ 08:38 by Nohelia Gonzáles LPN) Smoking Status: Former smoker alcohol intake: never substance use type: does not use HPI HPI HPI: Patient is a 64-year-old female here for change in bowel habits and blood in the stool. Patient notes that about 2 weeks ago she started having abdominal pain and difficulty having bowel movements. She is also seeing blood in the stool. She says it is painful to have bowel movements. ROS General General: Yes weight change; No appetite, fatigue, colon cancer, breast cancer or weakness HEENT HEENT: No difficulty swallowing, eye injury, eye surgery, swollen glands or hoarseness Endo Endocrine: Yes thyroid disease; No diabetes mellitus, thyroid cancer, Hair loss, heat intolerance or cold intolerance Skin Skin: No rash or changing moles Musc Musculoskeletal: Yes back problems and arthritis; No rheumatoid arthritis, gout or joint pain Cardio Cardiovascular: No murmur, pacemaker, heart disease, atrial fibrillation, high blood pressure, heart attack, heart stent, palpitations, shortness of breat with exertion or chest pain Psych Psychiatric: Yes anxiety; No depression or hearing voices Resp Respiratory: No shortness of breath, Yes sleep apnea, No cough, No COPD, No asthma, No emphysema and No wheezing Gastro Gastrointestinal: Yes abdominal pain, No nausea or vomiting, No diarrhea, Yes constipation, Yes blood in stool, No acid reflux, Yes hemorrhoids, No ulcers, No gallbladder problem and No black,tarry stools Jimmy Hematologic: No blood thinners, No blood disorders, No bleeding, No anemia and No blood clots Neuro Neurologic: No numbness, No tingling and No weakness Exam Const General: cooperative Orientation: alert and oriented x3 HENMT Head: normal to inspection Neck Neck: normal visual inspection and full ROM Chest Chest palpation & inspection: normal inspection of the chest Resp Effort & Inspection: normal respiratory effort Auscultation: clear to auscultation bilaterally Cardio Rate: regular rate Rhythm: regular rhythm GI Inspection: non-distended Palpation: soft and nontender Skin General: no rashes or lesions noted Neuro General: patient alert and patient oriented x3 Extrem General: full ROM Psych Appearance: grossly normal Mental Status: mental status grossly normal Assessment and Plan Assessment and Plan (1) Constipation: Status: Acute (2) Blood in the stool: Status: Acute Orders: Orders Colonoscopy Today Medications: Discontinued ondansetron Discontinued Reason: Pt no longer taking 4 mg PO Q8H PRN PRN 10 tabs 0RF Nausea Plan Patient is having constipation but she is also having blood in the stool. Her last colonoscopy was 2018. Recommend colonoscopy for to reevaluate. I explained endoscopy in detail to the patient. I explained the risks including but not limited to stroke or heart attack with anesthesia, perforation of the GI tract, bleeding, infection. I explained that any of these could necessitate further emergency surgery. The patient understands and all questions were answered sufficiently. The patient wishes to proceed with procedure. Sunil Lerner MD Pager: [facility] [address] [place] [address], [address] [place] [address] Office: I have examined the patient and the H&P has been reviewed. There are no clinical changes since date of exam.
--- NOTE | 2025-01-05 07:44 | PCM.PRE.AN2 ---
ASA Classification* ASA Classification ASA Classification: 2 Assessment & Plan Anesthesia* Anesthesia Assessment Anesthesia Assessment: Discussed sedation and/or anesthesia options, risks, benefits, and alternatives with patient/parents/legal guardian/POA. Questions invited. The patient/parents/legal guardian/POA seems to understand and agrees to proceed with anesthesia plan. Reviewed the physical assessment, medical history, allergy history and patient home medications list prior to surgery/procedure/anesthetic and documented any changes. Performed airway and anesthesia risk assessments. Anesthesia Type Anesthesia Type: MAC History Source History Obtained from:: Patient, Chart and Significant Other (spouse) Anesthesia Focused Assessment* Temperature: 98.2 F Pulse Rate: 64 Blood Pressure: 163/78 Respiratory Rate: 16 Pulse Ox: 98 Oxygen Delivery Method: Room Air Airway Assessment Mouth opens: 2 cm Mallampati Score: II Teeth Condition: Missing (2 missing teeth) Neck Range of motion (ROM): Limited ROM (mildly limited neck ROM) Focused Labs Anesthesia Preop lab: CBC WBC 6.7 K/mm3 (4.4-11.0) 01/20/24 16:48 01/20/24 RBC 4.03 M/mm3 (4.2-5.4) L 01/20/24 16:48 01/20/24 Hgb 12.9 g/dL (12.0-15.0) 01/20/24 16:48 01/20/24 Hct 38.7 % (37-47) 01/20/24 16:48 01/20/24 Plt Count 295 K/mm3 (150-450) 01/20/24 16:48 01/20/24 CHEMISTRY Potassium 3.7 mmol/L (3.5-5.1) 01/20/24 16:48 01/20/24 Sodium 139 mmol/L (136-145) 01/20/24 16:48 01/20/24 BUN 11 mg/dL (7-18) 01/20/24 16:48 01/20/24 Creatinine 0.63 mg/dL (0.55-1.02) 01/20/24 16:48 01/20/24 Glucose 112 mg/dL (74-106) H 01/20/24 16:48 01/20/24 TSH 2.330 uIU/mL (0.358-3.740) 09/01/24 10:34 09/01/24 COAG Pre-Assessment Diagnosis/Proposed Procedure Planned Operative Procedure(s): CSCOPE Anesthesia History Anesthesia History - suture gauger: Anesthesia History - suture gauger Hx Hospitalization No 01/03/25 11:19 Any Problems With Anesthesia No 01/03/25 11:19 Cholinesterase deficiency No 01/03/25 11:19 You/Your Family Experience No 01/03/25 11:19 fever (hyperthermia) with Relationship Recent Exposure to Contagious No 01/05/25 07:16 Disease Does patient have nerve No 01/03/25 11:19 stimulator Patient instructed to have device shut off --Does patient have Pacemaker No 01/05/25 07:16 or ICD? When Was Last Pacemaker Check QUESTION #4 FULL TEXT: You/Your Family Experience fever (hyperthermia) with Anesthesia Last Oral Intake Last Oral intake: Last Oral Intake NPO since 23:00 01/05/25 07:16 Meds taken in AM with sips of Yes 01/05/25 07:16 water? Meds patient instructed to see med list 01/05/25 07:16 take am of surgery PONV PONV - suture gauger: PONV - suture gauger Female Yes 01/03/25 11:19 HX of Motion Sickness No 01/03/25 11:19 HX of N/V After Surgery No 01/03/25 11:19 Non-Smoker Yes 01/03/25 11:19 Duration of Surgery greater No 01/03/25 11:19 than 60 minutes Number of Risk Factors 2 01/03/25 11:19 PONV Score Moderate Risk 01/03/25 11:19 Height & Weight Height & Weight: Anesthesia: Height & Weight Height 5 ft 3 in 01/05/25 07:16 Weight: 71 kg 01/05/25 07:16 Body Mass Index (BMI) 27.7 01/05/25 07:16 Respiratory Assessment Respiratory Assessment - suture gauger: Respiratory Tract Infection Hx - suture gauger Hx Respiratory Tract Infection Yes: 1 MONTH AGO URI/ 01/03/25 11:19 RESOLVED STOP Sleep Apnea STOP Sleep Apnea - suture gauger: STOP Sleep Apnea - suture gauger Hx Hypertension No 01/03/25 11:19 Hx Sleep Apnea Yes 01/03/25 11:19 CPAP Yes 01/03/25 11:19 BIPAP No 01/03/25 11:19 Do you snore loudly (louder than talking or can be heard Do you often feel tired/ fatigued/ sleepy during daytime? Has anyone observed you stop breathing during sleep? STOP Results Positive 01/03/25 11:19 QUESTION #5 FULL TEXT : Do you snore loudly (louder than talking or can be heard through closed doors)? 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 Specify any problems Hx of Preganancy in last 3 No 01/03/25 11:19 Months Nurse Filling Out Transfusion DSCHRIBER 01/03/25 11:19 & Questions: Date: 01/03/25 01/03/25 11:19 Time: 11:21 01/03/25 11:19 Patient unable to answer at this time (ie. confused, unrespo /Reproduction History /Reproductive History - suture gauger: /Reproductive Hx- suture gauger Hx Now No 01/03/25 11:19 Gestational Age (in weeks): EDC: Hx Hx Para Hx Section SAB No 01/03/25 11:19 PFSH Medical History (Updated 01/03/25 @ 11:28 by Rowan Law) Wears glasses Post-menopausal Depression Alcohol use Thyroid disease Low iron Restless legs Back pain Migraine headache Bloated abdomen History of IBS Former smoker CPAP (continuous positive airway pressure) dependence Constipation Hemorrhoid Home Medications ?Medication ?Instructions ?Recorded ?Last Taken ?Type docusate sodium 50 mg capsule 50 mg PO DAILY 12/18/24 Unknown History ferrous sulfate 325 mg (65 mg 325 mg PO QDAY 12/18/24 Unknown History iron) tablet levothyroxine 75 mcg tablet 75 mcg PO QAM 12/18/24 01/05/25 History omega 6-tlu-ejb-fish oil 300 1 cap PO QDAY 12/18/24 Unknown History mg-1,000 mg capsule (Fish Oil) duloxetine 60 mg capsule,delayed 60 mg PO DAILY 01/03/25 Unknown History release Allergy/AdvReac Type Severity Reaction Status Date / Time adhesive AdvReac Rash Verified 01/05/25 07:15 Surgical History (Updated 01/03/25 @ 11:28 by Rowan Law) Hx of colonoscopy Hx of arthroscopy of shoulder History of hysterectomy H/O section Social History (Updated 12/18/24 @ 08:38 by Nohelia Gonzáles LPN) Smoking Status: Former smoker alcohol intake: never substance use type: does not use Review of Systems (Anesthesia) ROS Narrative System reviewed and no additional complaints, except as documented.
--- NOTE | 2025-01-05 08:37 | PCM.POST.ANE ---
Anesthesia: Postop Eval I Current Vital Signs Temperature: 97.3 F Pulse Rate: 66 Blood Pressure: 122/73 Respiratory Rate: 16 Pulse Ox: 95 Oxygen Delivery Method: Room Air Assessment Airway patent: Yes Spontaneous unlabored respirations: Yes Mental status: Awake and Calm nausea: No Vomiting: No Anesthesia Complication: No Fluid Hydration Crystalloid volume administer (ml): 20 Total IV fluid infused: 20 Progress Note Anesthesia document: Postop Eval 1 completed: Yes
--- NOTE | 2025-01-05 08:41 | OP.CCLET_ITS ---
01/05/2025 Vasile Prasad Re : Colonoscopy procedure for Sugar Hoyos Dear Larry This procedure was performed on Sunday, January 05, 2025. My impressions and recommendations are as follows: Impressions : - The entire examined colon is normal on direct and retroflexion views. - No specimens collected. Recommendations : - Discharge patient to home. - Resume previous diet. - Continue present medications. - Repeat colonoscopy in 10 years for screening purposes. My findings are described in the full procedure note, which is enclosed. If I can be of further assistance, please feel free to contact me at Doctor phone number(s): , Work: . Sincerely, Sunil Lerner MD 01/05/2025 8:41:06 AM This report has been signed electronically.
--- NOTE | 2025-01-05 08:41 | OP.COLON_ITS ---
Patient Name: Sugar Hoyos Procedure Date: 01/05/2025 8:16 AM Date of : 1960 Age: 64 Procedure: Colonoscopy Indications: Hematochezia Providers: Sunil Lerner MD Referring MD: Vasile Prasad Medicines: Propofol per Anesthesia Patient Profile: This is a 64 year old female. Refer to note in patient chart for documentation of history and physical. Last Colonoscopy: 3 years ago. Complications: No immediate complications. Procedure: Pre-Anesthesia Assessment: - Prior to the procedure, a History and Physical was performed, and patient medications and allergies were reviewed. The patient's tolerance of previous anesthesia was also reviewed. The risks and benefits of the procedure and the sedation options and risks were discussed with the patient. All questions were answered, and informed consent was obtained. Prior Anticoagulants: The patient has taken no anticoagulant or antiplatelet agents. After reviewing the risks and benefits, the patient was deemed in satisfactory condition to undergo the procedure. After I obtained informed consent, the scope was passed under direct vision. Throughout the procedure, the patient's blood pressure, pulse, and oxygen saturations were monitored continuously. The colonoscope was introduced through the anus and advanced to the cecum, identified by appendiceal orifice and ileocecal valve. The colonoscopy was performed without difficulty. The patient tolerated the procedure well. The quality of the bowel preparation was good. The ileocecal valve, appendiceal orifice, and rectum were photographed. Scope In: 8:23:53 AM Scope Withdrawal Time 0 hours 6 minutes 14 seconds Scope Out: 8:36:06 AM Total Procedure Duration Time 0 hours 12 minutes 13 seconds Findings: The entire examined colon appeared normal on direct and retroflexion views. Impression: - The entire examined colon is normal on direct and retroflexion views. - No specimens collected. Recommendation: - Discharge patient to home. - Resume previous diet. - Continue present medications. - Repeat colonoscopy in 10 years for screening purposes. Procedure Code(s): --- Professional --- 84355, Colonoscopy, flexible; diagnostic, including collection of specimen(s) by brushing or washing, when performed (separate procedure) Diagnosis Code(s): --- Professional --- K92.1, Melena (includes Hematochezia) CPT copyright 2021 [employer]. All rights reserved. The codes documented in this report are preliminary and upon stable manager review may be revised to meet current compliance requirements. Sunil Lerner MD 01/05/2025 8:41:06 AM This report has been signed electronically. Number of Addenda: 0 Note Initiated On: 01/05/2025 8:16 AM
--- NOTE | 2025-01-05 11:42 | POSTOPAN2_ITS ---
Anesthesia Postop Eval I Sum Postop Eval Completion status Anesthesia document: Postop Eval 1 completed: Yes Anesthesia Postop Eval I Summary Anesthesia Postop Eval I Summary: Anesthesia Postop Eval I: Assessment Summary Airway patent Yes 01/05/25 08:44 SCRAP STRIPPER HAND.CHARLIEOBPilar Spontaneous unlabored Yes 01/05/25 08:44 SCRAP STRIPPER HAND.MARITZA respirations Mental status Awake,Calm 01/05/25 08:44 SCRAP STRIPPER HAND.MARITZA nausea No 01/05/25 08:44 SCRAP STRIPPER HAND.MARITZA Vomiting No 01/05/25 08:44 SCRAP STRIPPER HAND.MARITZA Anesthesia Postop Eval I: Fluid Summary Crystalloid volume administer 20 01/05/25 08:44 SCRAP STRIPPER HAND.MARITZA (ml) Colloids volume administered ( ml) Blood Product volume administered (ml) Total IV fluid infused 20 01/05/25 08:44 SCRAP STRIPPER HAND.MARITZA Anesthesia Postop Eval I: Summary Notes Anesthesia Complication No 01/05/25 08:44 SCRAP STRIPPER HANDMALLORY Anesthesia Complication Comment: Post-operative progress note Anesthesia: Postop Eval II Evaluation Mental status: Awake Pain Level: 0 nausea: No Vomiting: No Complications Anesthesia Complication: No
--- NOTE | 2025-01-05 11:42 | PCM.POSTANE2 ---
Anesthesia Postop Eval I Sum Postop Eval Completion status Anesthesia document: Postop Eval 1 completed: Yes Anesthesia Postop Eval I Summary Anesthesia Postop Eval I Summary: Anesthesia Postop Eval I: Assessment Summary Airway patent Yes 01/05/25 08:44 NEW CAR INSPECTOR.CHARLIEOBPilar Spontaneous unlabored Yes 01/05/25 08:44 NEW CAR INSPECTOR.MARITZA respirations Mental status Awake,Calm 01/05/25 08:44 NEW CAR INSPECTOR.MARITZA nausea No 01/05/25 08:44 NEW CAR INSPECTOR.MARITZA Vomiting No 01/05/25 08:44 NEW CAR INSPECTOR.MARITZA Anesthesia Postop Eval I: Fluid Summary Crystalloid volume administer 20 01/05/25 08:44 NEW CAR INSPECTOR.MARITZA (ml) Colloids volume administered ( ml) Blood Product volume administered (ml) Total IV fluid infused 20 01/05/25 08:44 NEW CAR INSPECTOR.MARITZA Anesthesia Postop Eval I: Summary Notes Anesthesia Complication No 01/05/25 08:44 NEW CAR INSPECTORMALLORY Anesthesia Complication Comment: Post-operative progress note Anesthesia: Postop Eval II Evaluation Mental status: Awake Pain Level: 0 nausea: No Vomiting: No Complications Anesthesia Complication: No
== END 2025-01-05 09:22 | disposition home or self-care (01) ==
LOC: EN 07:02 → AC 07:03
PROVIDERS: PCP Nurse Practitioner Family; Referring Provider Nurse Practitioner Family; Visit Provider Surgery
PROC: 0DJD8ZZ Inspection of Lower Intestinal Tract, Via Natural or Artificial Opening Endoscopic (ICD-10-PCS; CPT 45378; principal; 2025-01-05 07:55)
DX: K92.1 Melena (principal); K59.00 Constipation, unspecified; Z87.891 Personal history of nicotine dependence; E07.9 Disorder of thyroid, unspecified; Z79.890 Hormone replacement therapy
CPT/HCPCS: 45378; A4216

== ENCOUNTER → 2025-01-25 | Outpatient (CLI) | payer OTHER, SELFPAY ==
[2025-01-29 15:08] LABS: Endomysial Antibody IgA Negative (Negative); Immunoglobulin A 314 mg/dL (87-352); t-Transglutaminase IgA 2 U/mL (0-3)
== END | disposition home or self-care (01) ==
LOC: MTLAB 15:03
PROVIDERS: PCP Nurse Practitioner Family; Referring Provider Nurse Practitioner Family; Visit Provider Nurse Practitioner Family
DX: R19.7 Diarrhea, unspecified (principal); R19.4 Change in bowel habit
CPT/HCPCS: 82784; 83516; 86255

== ENCOUNTER → 2025-02-05 | Outpatient (CLI) | payer OTHER, SELFPAY ==
--- NOTE | 2025-02-05 11:20 | RAD_ITS ---
PROCEDURE: L/S SPINE MIN 4 VIEWS 02/05/2025 REASON FOR EXAM: BACK PAIN TECHNIQUE: AP, lateral and bilateral obliques with a repeated oblique imaging with a total of 5 total images COMPARISON: None available FINDINGS: 5 [id number] lumbar vertebral body types identified. Mild anterior wedge compression deformity with apparent vertebroplasty at L1 with left anterior curvilinear density may represent extruded material into lumbar vessel. L1 superior anterior corner fracture is age indeterminate, clinically correlate. Fragment does appear to contain methylmethacrylate. Abnormally diffusely dense/sclerotic appearing L2, L3 and L4 vertebral bodies with note of multiple appearing bilateral iliac sclerotic foci concerning for metastatic disease, clinically correlate and requires further workup. Lower lumbar facet hypertrophic degenerative appearing changes. Approximately 4 mm of anterolisthesis of L4 on L5. The disc spaces appear within limits. Suggestion of mild aortoiliac atherosclerotic calcification. Possible unilateral left L5 spondylolysis. RAD/L/S Spine Min 4 Views IMPRESSION: Mild anterior wedge compression deformity with apparent vertebroplasty at L1 wi th left anterior curvilinear density may represent extruded material into lumbar vessel. L1 superior anterior corner fracture is age indeterminate, clinically correlate. Fragment does appear to contain methylmethacrylate. Abnormally diffusely dense/sclerotic appearing L2, L3 and L4 vertebral bodies w ith note of multiple appearing bilateral iliac sclerotic foci concerning for metastatic disease, clinically correlate and requ ires further workup. Spondylosis with approximately 4 mm of anterolisthesis of L4 on L5. Possible unilateral left L5 spondylolysis. Reading Location: [id number]
== END | disposition home or self-care (01) ==
LOC: MTRAD 11:16
PROVIDERS: PCP Nurse Practitioner Family; Referring Provider Nurse Practitioner Family; Visit Provider Nurse Practitioner Family
DX: M54.50 Low back pain, unspecified (principal)
CPT/HCPCS: 72110

== ENCOUNTER → 2025-03-05 | Outpatient (CLI) | payer OTHER, SELFPAY ==
--- NOTE | 2025-03-05 09:26 | NM_ITS ---
PROCEDURE: BONE SCAN WHOLE BODY 03/05/2025 REASON FOR EXAM: BONE LESIONS TECHNIQUE: Blood flow, blood pool, and delayed phase imaging of the whole-body after radiopharmaceutical administration RADIOPHARMACEUTICAL: 27.0 mCi Technetium-99m MDP IV COMPARISON: None FINDINGS: There is abnormal radiotracer activity throughout the axial and appendicular skeleton consistent with diffuse blastic bony metastatic disease. There are lesions throughout the skull, cervical, thoracic, and lumbar spine, right and left ribs, right and left pelvis, proximal and distal right and left femur, with additional foci noted in the distal right humerus, and at the right and left wrist and right and left foot and ankle which may be degenerative. The NM/Bone Scan Whole Body IMPRESSION: There is abnormal radiotracer activity throughout the axial and appendicular [place] consistent with diffuse blastic bony metastatic disease. Reading [facility]
== END | disposition home or self-care (01) ==
PROVIDERS: PCP Nurse Practitioner Family; Referring Provider Internal Medicine Hematology & Oncology; Visit Provider Internal Medicine Hematology & Oncology
DX: M89.9 Disorder of bone, unspecified (principal)
CPT/HCPCS: 78306; A9503

== ENCOUNTER → 2025-03-07 | Outpatient (CLI) | payer OTHER, SELFPAY ==
--- NOTE | 2025-03-07 08:55 | BI_ITS ---
EXAM: DIAG MAMM W/CAD, BILAT; BILAT BRST PEGGY STAND ALONE; BREAST COMPLETE UNILATERAL 03/07/2025 CLINICAL HISTORY: 64-year-old female presents with palpable concern in the bilateral breast. No family history of breast cancer. TECHNIQUE: Bilateral Diagnostic digital breast tomosynthesis with 2D and 3D images. Computer aided detection. Also, targeted bilateral breast ultrasounds were performed. COMPARISON: Prior exam(s) dated 05/25/2024, 05/10/2023. FINDINGS: MAMMOGRAM: TISSUE DENSITY: The breast tissue is heterogenously dense, which may obscure small masses. The mammogram demonstrates that the patient has dense breasts. Supplemental screening with whole breast ultrasound or MRI may be considered for further evaluation. RIGHT BREAST: 1. There is a triangle skin marker indicating the area of palpable concern in the right breast. Underlying the skin marker is an asymmetry in the lateral right breast at middle depth best visualized on the CC view. 2. There is an irregular spiculated high density mass in the central outer right breast at posterior depth. LEFT BREAST: 1. There is a triangle skin marker indicating the area of palpable concern in the upper-outer left breast. Underlying the skin marker is an irregular spiculated high density mass at middle depth. 2. There are additional scattered irregular high density masses in the superior and central left breast. ULTRASOUND: RIGHT BREAST: 1. There are two irregular hypoechoic masses in the right breast at 10 o'clock 5 cm from the nipple, measuring up to 0.5 cm. These correlate with the patient's area of palpable concern. 2. There is a irregular hypoechoic mass in the right breast at 8 o'clock 5 cm from the nipple measuring 1.2 x 1.0 x 1.0 cm. 3. There is another irregular hypoechoic mass in the right breast at 9 o'clock 3 cm from the nipple measuring 0.9 x 0.8 x 0.7 cm. 4. There is a prominent right axillary lymph node measuring 1.2 x 0.5 x 0.8 cm in cortical thickening up to 0.3 cm. LEFT BREAST: 1. There is an irregular hypoechoic mass in the left breast at 2 o'clock 5 cm from the nipple measuring 1.2 x 1.1 x 0.8 cm. Also there is another irregular hypoechoic mass in the left breast at 2 o'clock 4 cm from the nipple measuring 1.0 x 1.0 x 0.6 cm. These correlates with the patient's area of palpable concern. 2. There are additional irregular hypoechoic masses in the left breast at 11 30 o'clock 3 cm from the nipple measuring 0.8 x 0.8 x 0.8 cm. 3. There are 2 prominent left axillary lymph nodes, the freight representative node measures 0.9 x 0.8 x 0.6 cm with cortical thickening of 0.3 cm. BI/DIAG MAMM W/CAD, BILAT IMPRESSION: Multiple scattered bilateral irregular breast masses is concerning for malignan cy, this may represent metastatic disease versus primary breast malignancy. Recommend tissue sampling with ultrasound-guided co re needle biopsy of the right breast mass at 8 o'clock 5 cm from the nipple and the left breast mass at 2 o'clock 5 cm from th e nipple for further evaluation. OVERALL FINAL ASSESSMENT: BIRADS 5 HIGHLY SUGGESTIVE OF MALIGNANCY. RECOMMENDATION: Recommend ultrasound core needle biopsy of the bilateral breast masses. A letter with findings and recommendations will be mailed to the patient. Reading Location: [id number]
--- NOTE | 2025-03-07 09:00 | BI_ITS ---
EXAM: DIAG MAMM W/CAD, BILAT; BILAT BRST PEGGY STAND ALONE; BREAST COMPLETE UNILATERAL 03/07/2025 CLINICAL HISTORY: 64-year-old female presents with palpable concern in the bilateral breast. No family history of breast cancer. TECHNIQUE: Bilateral Diagnostic digital breast tomosynthesis with 2D and 3D images. Computer aided detection. Also, targeted bilateral breast ultrasounds were performed. COMPARISON: Prior exam(s) dated 05/25/2024, 05/10/2023. FINDINGS: MAMMOGRAM: TISSUE DENSITY: The breast tissue is heterogenously dense, which may obscure small masses. The mammogram demonstrates that the patient has dense breasts. Supplemental screening with whole breast ultrasound or MRI may be considered for further evaluation. RIGHT BREAST: 1. There is a triangle skin marker indicating the area of palpable concern in the right breast. Underlying the skin marker is an asymmetry in the lateral right breast at middle depth best visualized on the CC view. 2. There is an irregular spiculated high density mass in the central outer right breast at posterior depth. LEFT BREAST: 1. There is a triangle skin marker indicating the area of palpable concern in the upper-outer left breast. Underlying the skin marker is an irregular spiculated high density mass at middle depth. 2. There are additional scattered irregular high density masses in the superior and central left breast. ULTRASOUND: RIGHT BREAST: 1. There are two irregular hypoechoic masses in the right breast at 10 o'clock 5 cm from the nipple, measuring up to 0.5 cm. These correlate with the patient's area of palpable concern. 2. There is a irregular hypoechoic mass in the right breast at 8 o'clock 5 cm from the nipple measuring 1.2 x 1.0 x 1.0 cm. 3. There is another irregular hypoechoic mass in the right breast at 9 o'clock 3 cm from the nipple measuring 0.9 x 0.8 x 0.7 cm. 4. There is a prominent right axillary lymph node measuring 1.2 x 0.5 x 0.8 cm in cortical thickening up to 0.3 cm. LEFT BREAST: 1. There is an irregular hypoechoic mass in the left breast at 2 o'clock 5 cm from the nipple measuring 1.2 x 1.1 x 0.8 cm. Also there is another irregular hypoechoic mass in the left breast at 2 o'clock 4 cm from the nipple measuring 1.0 x 1.0 x 0.6 cm. These correlates with the patient's area of palpable concern. 2. There are additional irregular hypoechoic masses in the left breast at 11 30 o'clock 3 cm from the nipple measuring 0.8 x 0.8 x 0.8 cm. 3. There are 2 prominent left axillary lymph nodes, the sales representative gas service node measures 0.9 x 0.8 x 0.6 cm with cortical thickening of 0.3 cm. BI/Bilat Brst Peggy Stand Alone IMPRESSION: Multiple scattered bilateral irregular breast masses is concerning for malignan cy, this may represent metastatic disease versus primary breast malignancy. Recommend tissue sampling with ultrasound-guided co re needle biopsy of the right breast mass at 8 o'clock 5 cm from the nipple and the left breast mass at 2 o'clock 5 cm from th e nipple for further evaluation. OVERALL FINAL ASSESSMENT: BIRADS 5 HIGHLY SUGGESTIVE OF MALIGNANCY. RECOMMENDATION: Recommend ultrasound core needle biopsy of the bilateral breast masses. A letter with findings and recommendations will be mailed to the patient. Reading Location: [id number]
== END | disposition home or self-care (01) ==
PROVIDERS: PCP Nurse Practitioner Family; Referring Provider Internal Medicine Hematology & Oncology; Visit Provider Internal Medicine Hematology & Oncology
DX: R92.30 Dense breasts, unspecified (principal); N63.11 Unspecified lump in the right breast, upper outer quadrant; N63.13 Unspecified lump in the right breast, lower outer quadrant; N63.15 Unspecified lump in the right breast, overlapping quadrants; N63.21 Unspecified lump in the left breast, upper outer quadrant; N63.22 Unspecified lump in the left breast, upper inner quadrant
CPT/HCPCS: 76641; 77062; 77066; G0279

== ENCOUNTER → 2025-03-09 | Outpatient (CLI) | payer OTHER, SELFPAY ==
--- NOTE | 2025-03-09 15:00 | BRBX_PTH ---
PATIENT: TIFFANY FERMIN LOC: [facility] U#:[id number] AGE/SX: 64/F ROOM: RE03/09/[address]: Dr. Sunil Lerner MD : 1960 BED: DIS: 03/09/2025 SPEC #: [id number] RECD: 03/09/25 15:39 STATUS: SENTHIL REQ #: [id number] JANENE: 03/09/25 15:[address]: Sunil Lerner DEPT: SURGICAL PATHOLOGY RECD BY: Alden Campos ENTERED: 03/09/25 16:18 SP TYPE: BREAST BX OTHR DR: Jolanta Juarez, FINANCE CONSULTANT-C Tissues: A - Left breast, NOS B - Right breast, NOS Procedures: Immunohistochemical Stains Surgery Specimen Level IV IHC Stain ADDITIONAL HEADER OPERATION: Ultrasound guided needle core biopsy / bilateral breasts PRE-OP DIAGNOSIS: Abnormal mammogram TISSUE SUBMITTED: A- Left breast tissue, B- Right breast tissue Ischemic Time: 1 minute Fixation Time: 12 hours MICROSCOPIC DIAGNOSIS A. Left breast, core biopsy: * Neuroendocrine carcinoma - see microscopic description and Comment. B. Right breast, core biopsy: * Neuroendocrine carcinoma - see microscopic description and Comment. COMMENT The histologic and immunophenotypic findings support a diagnosis of neuroendocrine carcinoma. Similar findings are demonstrated by the tumor metastatic to the liver (see surgical pathology report for the liver core biopsy [id number]). While primary neuroendocrine tumors in the breast can occur, they are extremely rare and are usually associated with poorly differentiated ductal carcinoma and DCIS (not observed in this tissue). Given that all IHC breast markers in this tissue are negative and there is diffuse strong positivity for CDX2, a gastrointestinal primary cannot be ruled out. Correlation with clinical and imaging findings is necessary. The findings were discussed with Dr Eugenia bauman 03/26/25. Selected slides/images were reviewed in intradepartmental ([facility]) consultation by Dr Zack Soto (breast pathology division) and at the GI pathology division consensus conference. MICROSCOPIC DESCRIPTION The routine histology demonstrates an invasive carcinoma without the typical morphology of breast ductal or lobular carcinoma. There is some crush artifact distorting the cells. Further evaluation with IHC revealed the tumor cells to be - Positive for: E-cadherin, p53 (wild type), chromogranin, and synaptophysin, with a Ki67 proliferative index of approximately 20% (as determined by manual immunohistochemical technique). Negative for: CK5/6, p40, ER, MI, HER2, GATA3, PAX8, TTF-1, TRPS1, Glypican-3, Villin, Melan-A, SOX10, BRST2, mammoglobin, calretinin, and SMMS. All matched controls reacted appropriately. These tests were developed and their performance characteristics determined by [facility]. They may not have been cleared or approved by the U.S. Food and Drug Administration. The FDA has determined that such clearance or approval is not necessary.? The above immunohistochemical/dualISH?markers are ordered and reviewed by the Pathologist. GROSS DESCRIPTION A. Received in formalin in a container labeled with the patient's name, date of , and L breast tissue are multiple head-yellow fragments of fibrofatty tissue measuring 1.4 x 0.8 x 0.2 cm in aggregate. Submitted in toto in A1. B. Received in formalin in a container labeled with the patient's name, date of , and R breast tissue are multiple head-yellow fragments of fibrofatty tissue measuring 1.8 x 0.8 x 0.2 cm in aggregate. Submitted in toto in B1. [facility] 03-09-2025 CPT:33028n9,49662g1,60449k04,[id number] ADDENDUM ADDENDUM ADDENDUM ADDENDUM ADDENDUM ADDENDUM ADDENDUM ADDENDUM ADDENDUM 04/13/2025 11:24 ADDENDUM 04/13/2025 11:24 ADDENDUM 04/13/2025 11:24 ADDENDUM 04/13/2025 11:24 ADDENDUM 04/13/2025 11:24 PD-L1 (KEYTRUDA) IMMUNOHISTOCHEMICAL ANALYSIS FROM [facility] - BLOCK A 1 RESULTS: Tumor proportion score: <1 % / Negative COMMENT: The biopsy contains sufficient (>100) viable tumor cells. A positive control for each antibody has been reviewed and accepted. Please see complete report in e-chart or EMR
== END | disposition home or self-care (01) ==
LOC: LABSPEC 15:46
PROVIDERS: PCP Nurse Practitioner Family; Referring Provider Surgery; Visit Provider Surgery
DX: D3A.8 Other benign neuroendocrine tumors (principal)
CPT/HCPCS: 88305; 88341; 88342

== ENCOUNTER → 2025-03-14 | Outpatient (CLI) | payer OTHER, SELFPAY ==
--- NOTE | 2025-03-14 12:57 | MRI_ITS ---
PROCEDURE: BRAIN W/WO CONTRAST 03/14/2025 REASON FOR EXAM: STAGING BREAST CANCER TECHNIQUE: Routine brain MRI without and with intravenous contrast. Multiplanar and multisequence images were obtained. CONTRAST: 14 cc of Clariscan FINDINGS: No hydrocephalus. No intracranial mass. No intracranial hemorrhage. No pathologic flow voids. Normal brainstem and cerebellum. No abnormal diffusion to suggest an acute or recent ischemic event. Coronal T2 weighted images demonstrate no hippocampal asymmetry. There is no Chiari deformity. There is no pathologic intracranial enhancement. There are no pathologic flow voids. The sinuses are clear. Thin-section postcontrast images are negative for dural sinus thrombosis. MRI/Brain W/WO Contrast IMPRESSION: No abnormality seen negative for metastatic disease from breast cancer intracra nially. Reading Location: [facility]
--- NOTE | 2025-03-14 14:01 | CT_ITS ---
PROCEDURE: CT CHEST, ABD, PEL W/CONTRAST 03/14/2025 REASON FOR EXAM: STAGING BREAST CANCER TECHNIQUE: Chest, abdomen and pelvis CT with intravenous contrast. Coronal and Sagittal reconstruction series were provided. One or more dose reduction techniques were used (e.g., Automated exposure control, adjustment of the mA and/or kV according to patient size, use of iterative reconstruction technique. PATIENT PREPARATION: Per protocol ORAL CONTRAST TYPE: None. CONTRAST: Isovue-300 VOLUME: 100mL RADIATION DOSE SUMMARY: CTDlvol: 12 mGy DLP: 1056.79 mGycm COMPARISON: None FINDINGS: CT CHEST: Hardware: None. Punctate calcification seen in the posterior aspect of both breasts. Lymph nodes: Small benign-appearing axillary lymph nodes. Small benign- appearing mediastinal lymph nodes. Heart and Vasculature: Minimal coronary artery calcification. Calcification of the aortic arch. Lungs and Airways: No pulmonary nodules are seen. Pleura: No pleural effusion. Bones: Multiple sclerotic metastasis involving the cervical, thoracic and lumbar vertebrae. Loss of height of the L1 vertebrae and prior vertebroplasty. CT ABDOMEN/PELVIS: Liver: Multiple irregular hypodense nodules are seen throughout both right and left lobes of the liver suggestive of metastatic deposits. Gallbladder: Unremarkable. Spleen: Normal size. Pancreas: Normal size without evidence of mass surrounding inflammation or ductal dilation. Adrenals: Unremarkable. Kidneys: Normal renal sizes. No hydronephrosis. Bladder: Unremarkable Reproductive Organs: Prior hysterectomy. Adnexal regions are unremarkable. Bowel: Colonic diverticulosis without diverticulitis. Appendix: Unremarkable. Lymph nodes: Unremarkable. Vasculature: Mild diffuse atherosclerotic calcifications are noted. Peritoneum / Retroperitoneum: Unremarkable. Bones: Diffuse metastasis of the lumbar vertebrae with loss of height of the L1 vertebrae and prior vertebroplasty. Osteoblastic metastasis involving the pelvis as well as both visualized portions of the femurs. CT/CT Chest, Abd, Pel w/Contrast IMPRESSION: Diffuse bony metastasis. Multiple hypodense masses in the liver in keeping with a hepatic metastasis. Reading Location: [id number]
== END | disposition home or self-care (01) ==
PROVIDERS: PCP Nurse Practitioner Family; Referring Provider Internal Medicine Hematology & Oncology; Visit Provider Internal Medicine Hematology & Oncology
DX: C50.911 Malignant neoplasm of unspecified site of right female breast (principal); C79.51 Secondary malignant neoplasm of bone; C77.9 Secondary and unspecified malignant neoplasm of lymph node, unspecified; C50.912 Malignant neoplasm of unspecified site of left female breast
CPT/HCPCS: 70553; 71260; 74177; A9575; Q9967

== ENCOUNTER 2025-03-16 07:59 | Outpatient (CLI) | payer OTHER, SELFPAY ==
[2025-03-16] VITALS (15 sets, daily range): BP systolic 120–189; BP diastolic 58–96; PULSE 63–88; RESP 15–28; TEMP 36; O2SAT 90–97; BMI 28.7
--- NOTE | 2025-03-16 08:16 | CT_ITS ---
PROCEDURE: BIOPSY/INJ OR NEEDLE PLACEMENT 03/16/2025 CT-guided liver biopsy. REASON FOR EXAM: STAGING BREAST CANCER TECHNIQUE: The procedure as well as the benefits and possible complications including infection and bleeding were explained to the patient. Informed consent was obtained.. The patient was in the supine position. Conscious sedation was performed. The patient received 2 mg of Versed and 50 mcg of fentanyl intravenously. Conscious sedation was started at 9:03 a.m. and terminated at 9:28 a.m.. The patient was independently monitored by the department nurse. The overlying skin was prepped and draped in the usual sterile fashion. Following local anesthetic application, 18 gauge core biopsy needle was placed into the lesion in the anterior aspect of the right lobe of the liver. 4 core biopsies were obtained. The specimen was deemed adequate by the pathologist. One or more dose reduction techniques were used (e.g., Automated exposure control, adjustment of the mA and/or kV according to patient size, use of iterative reconstruction technique). RADIATION DOSE SUMMARY: CTDlvol: 16 mGy DLP: 254.2 mGycm COMPARISON: Prior CT scan of the abdomen and pelvis dated March 14, 2025. FINDINGS: Successful CT-guided core biopsy of the right lobe of the liver. CT/Biopsy/Inj or Needle Placement IMPRESSION: Successful core biopsies of the abnormality in the anterior aspect of the right lobe of the liver as described. The patient tolerated the procedure well. No immediate complication noted. Reading Location: [place] [id number]
[2025-03-16] MEDS: 0.9% Saline Lock 10 ML Syringe IV (08:49)
[2025-03-16] MEDS: Midazolam 2 MG/2 ML Syringe IV (09:03)
[2025-03-16] MEDS: fentaNYL 100 MCG/2 ML Ampul IV (09:07)
--- NOTE | 2025-03-16 09:15 | ASPIGT_PTH ---
PATIENT: TIFFANY FERMIN LOC: [facility] U#:[id number] AGE/SX: 65/F ROOM: RE03/16/[address]: Dr. Cori Maddox MD : 1960 BED: DIS: 03/16/2025 SPEC #: [id number] RECD: 03/16/25 09:45 STATUS: SENTHIL REQ #: [id number] JANENE: 03/16/25 09:[address]: Cori Maddox DEPT: SURGICAL PATHOLOGY RECD BY: Alden Campos ENTERED: 03/16/25 09:50 SP TYPE: ASP RAD OTHR DR: Jolanta Juarez, DISTRIBUTION OPERATIONS SUPERVISOR-C Tissues: A - Liver, NOS Procedures: FNA Specimen Adequacy Immunohistochemical Stains Special Stain Group II Surgery Specimen Level IV Imprint (control) IHC Stain ADDITIONAL HEADER OPERATION: Liver biopsy PRE-OP DIAGNOSIS: Liver mass TISSUE SUBMITTED: A- Liver biopsy 18 gauge x 4 cores MICROSCOPIC DIAGNOSIS A. Liver, mass, biopsy: * Small clusters of tumor cells consistent with metastatic neuroendocrine carcinoma - see note and Comment. * Note: IHC was performed. The tumor cells are positive for Pancytokeratin, Synaptophysin, Chromogranin and CDX2. The Ki67 proliferative index appears increased but is difficult to quantitate in this limited sampling. Negative IHC includes CK7, CK20 and OCTAVIA-3. A reticulin stain demonstrates normal liver plate architecture. The tumor cells are histologically and immunophenotypically similar to the neuroendocrine carcinoma identified in bilateral breast biopsies (see surgical pathology report [id number]). The primary site of origin cannot be determined histologically. Primary breast neuroendocrine carcinomas are extremely rare and usually associated with poorly differentiated breast ductal carcinoma and DCIS which are not observed in the breast biopsies. The strong diffuse CDX2 staining raises consideration of a gastrointestinal origin. Correlation with clinical and imaging findings is necessary. COMMENT The specimen is evaluated at the time of biopsy by Dr. Gaona. Immediate Evaluation = 3. Few malignant cells present. 4. Few malignant cells present. The case was discussed with Dr Eugenia Maddox on 03/26/25 (consultation with [facility] pending). Selected slides/images were reviewed in intradepartmental ([facility]) consultation by Dr Zack Soto (breast pathology division) and at the GI pathology division consensus conference. MICROSCOPIC DESCRIPTION Slides are reviewed. All matched controls reacted appropriately. These tests were developed and their performance characteristics determined by [facility]. They may not have been cleared or approved by the U.S. Food and Drug Administration. The FDA has determined that such clearance or approval is not necessary.? The above immunohistochemical/dualISH?markers are ordered and reviewed by the Pathologist. GROSS DESCRIPTION A. Received in formalin in a container labeled with the patient's name, date of , and with the accompanying paperwork indicating, liver biopsy, liver mass are multiple head-pink fragments of soft tissue measuring 1.1 x 0.6 x 0.3 cm in aggregate. Submitted in toto in A1. [facility] 03-16-2025 CPT:75097,39774,21159,[id number],80509
[2025-03-16] MEDS: Lidocaine 2% (20 ml mdv) 20 ML Vial INFILT (09:18)
[2025-03-16 09:45] LABS: International Normalized Ratio 0.9; Prothrombin Time (Protime)PT. 12.7 SECONDS (11.7-14.9)
[2025-03-16 09:46] LABS: Partial Thromboplast Time 26.1 Seconds (24.1-36.2)
== END 2025-03-16 23:59 | disposition home or self-care (01) ==
PROVIDERS: Radiology Diagnostic Radiology; PCP Nurse Practitioner Family; Referring Provider Internal Medicine Hematology & Oncology; Visit Provider Internal Medicine Hematology & Oncology
DX: D3A.8 Other benign neuroendocrine tumors (principal)
CPT/HCPCS: 47000; 36415; 77012; 85610; 85730; 88172; 88305; 88307; 88313; 88341; 88342; 99156; A4216

== ENCOUNTER 2025-04-11 10:24 | Day surgery (SDC) | payer OTHER, SELFPAY ==
[2025-04-11] VITALS (8 sets, daily range): BP systolic 120–141; BP diastolic 54–83; PULSE 72–78; RESP 14–18; TEMP 36.3–36.5; O2SAT 95–97; BMI 27.8
[2025-04-11] MEDS: Lactated Ringers 1,000 ML 15 ML IV (11:15)
--- NOTE | 2025-04-11 11:21 | HP.PCM_ITS ---
History and Physical Date of Admission: 04/11/25 Intake Vital Signs 04/05/2510:39 04/10/2508:57 Height 5 ft 1 in 5 ft 1 in Weight: 150 lb 148 lb 4 oz BMI 28.3 28.0 BP 143/86 H 148/74 H Blood Pressure Location Rt brachial Rt brachial Position Sitting Sitting Respiration 16 18 Pulse 67 77 Pulse Source Monitor Monitor Temp 98.3 F 97.2 F L Temp Source Temporal Pulse Oximetry (%) 96 99 Oxygen Delivery Method room air room air Intake Visit Reasons: PORT PLACEMENT Chief Complaint: port placement Accompanied by: and daughter Is patient in pain?: No Allergies adhesive Adverse Reaction (Verified 04/10/25 08:59) Rash Medications ?Medication ?Instructions ?Recorded ?Confirmed ?Type docusate sodium 50 mg capsule 50 mg PO DAILY 12/18/24 04/10/25 History ferrous sulfate 325 mg (65 mg 325 mg PO QDAY 12/18/24 04/10/25 History iron) tablet levothyroxine 75 mcg tablet 75 mcg PO QAM 12/18/24 04/10/25 History omega 7-cwu-hry-fish oil 300 1 cap PO QDAY 12/18/24 04/10/25 History mg-1,000 mg capsule (Fish Oil) duloxetine 60 mg capsule,delayed 60 mg PO DAILY 01/03/25 04/10/25 History release calcium carbonate (Calcium 600) 600 mg PO BID 02/22/25 04/10/25 History ondansetron 4 mg disintegrating 4 mg PO Q8H PRN nausea and 03/08/2503/19 Rx tablet vomiting 10 days #30 tabs acetaminophen 500 mg tablet 1,000 mg PO Q6H PRN 04/05/25 04/10/25 Hi story ibuprofen 400 mg tablet 400 mg PO TID PRN 04/05/25 04/10/25 Hist ory PFSH Medical History Metastasis to liver Regional lymph node metastasis present Metastasis to bone Bilateral breast cancer Wears glasses Post-menopausal Depression Alcohol use Thyroid disease Low iron Restless legs Back pain Migraine headache Bloated abdomen History of IBS Former smoker CPAP (continuous positive airway pressure) dependence Constipation Hemorrhoid Surgical History Hx of colonoscopy Hx of arthroscopy of shoulder History of hysterectomy H/O section Family History Mother DiabetesGrandfather Cancer Social History Smoking Status: Former smoker Tobacco: How many years used: 20 alcohol intake: current alcohol intake frequency: 3 or more drinks per day Alcohol type: beer substance use type: does not use HPI HPI HPI: Patient is a 65-year-old female was recently diagnosed with neuroendocrine tumor of both breasts. There is also side metastasis and the patient is here to rosalba carranza port placement for chemotherapy. ROS General General: Yes weight change; No appetite, fatigue, colon cancer, breast cancer or weakness HEENT HEENT: No difficulty swallowing, eye injury, eye surgery, swollen glands or hoarseness Endo Endocrine: Yes thyroid disease; No diabetes mellitus, thyroid cancer, Hair loss, heat intolerance or cold intolerance Skin Skin: No rash or changing moles Breast Breast: Yes breast pain, abnormal mammogram and abnormal US; No left breast lump, right breast lump, nipple discharge or breast enlargement Additional Details: Bilateral Breasts Musc Musculoskeletal: Yes back problems and arthritis; No rheumatoid arthritis, gout or joint pain Cardio Cardiovascular: No murmur, pacemaker, heart disease, atrial fibrillation, high blood pressure, heart attack, heart stent, palpitations, shortness of breath with exertion or chest pain Psych Psychiatric: Yes anxiety; No depression or hearing voices Resp Respiratory: No shortness of breath, Yes sleep apnea, No cough, No COPD, No asthma, No emphysema and No wheezing Gastro Gastrointestinal: Yes abdominal pain, No nausea or vomiting, No diarrhea, Yes constipation, Yes blood in stool, No acid reflux, Yes hemorrhoids, No ulcers, No gallbladder problem and No black,tarry stools Jimmy Hematologic: No blood thinners, No blood disorders, No bleeding, No anemia and No blood clots Neuro Neurologic: No system reviewed and no additional complaints, except as documented, No as per HPI, No abnormal gait, No abnormal hearing, No abnormal movements, No abnormal speech, No behavioral changes, No burning sensations, No confusion, No convulsions, No disequilibrium, No dizziness, No localized weakness, No frequent falls, No headache(s), No lack of coordination, No loss of vision, No memory loss, No numbness, No other visual disturbances, No radicular pain, No restless legs, No sensory deficit, No syncope, No tingling, No tremor(s), No weakness and No other Exam Const General: cooperative Orientation: alert and oriented x3 HENMT Head: normal to inspection Neck Neck: normal visual inspection and full ROM Chest Chest palpation & inspection: normal inspection of the chest Resp Effort & Inspection: normal respiratory effort Auscultation: clear to auscultation bilaterally Cardio Rate: regular rate Rhythm: regular rhythm GI Inspection: non-distended Palpation: soft and nontender Skin General: no rashes or lesions noted Neuro General: patient alert and patient oriented x3 Extrem General: full ROM Psych Appearance: grossly normal Mental Status: mental status grossly normal Assessment and Plan Assessment and Plan (1) Encounter for insertion of venous access port: Status: Acute Plan: Patient is here to discuss port placement for chemotherapy. I discussed port placement with the patient in detail. I discussed the risks including but not limited to bleeding, infection, pneumothorax, DVT. Patient understands the risks and is willing to proceed. Plan for surgery tomorrow. Sunil Lerner MD Pager: [facility] [address] [place] [address], [address] [place] [address] Office: I have examined the patient and the H&P has been reviewed. There are no clinical changes since date of exam.
--- NOTE | 2025-04-11 11:22 | PCM.PRE.AN2 ---
ASA Classification* ASA Classification ASA Classification: 2 (B/L breast cancer, anemia, depression, hypothyroidism. TAPE ALLERGY) Assessment & Plan Anesthesia* Anesthesia Assessment Anesthesia Assessment: Discussed sedation and/or anesthesia options, risks, benefits, and alternatives with patient/parents/legal guardian/POA. Questions invited. The patient/parents/legal guardian/POA seems to understand and agrees to proceed with anesthesia plan. Reviewed the physical assessment, medical history, allergy history and patient home medications list prior to surgery/procedure/anesthetic and documented any changes. Performed airway and anesthesia risk assessments. Anesthesia Type Anesthesia Type: General History Source History Obtained from:: Patient and Chart Anesthesia Focused Assessment* Temperature: 97.4 F Pulse Rate: 72 Blood Pressure: 141/83 Respiratory Rate: 16 Pulse Ox: 96 Oxygen Delivery Method: Room Air Airway Assessment Mouth opens: >3 cm Mallampati Score: II Teeth Condition: Intact Neck Range of motion (ROM): Full ROM Labs Anesthesia Preop lab: CBC WBC 6.4 K/mm3 (4.4-11.0) 04/05/25 12:40 04/05/25 RBC 4.42 M/mm3 (4.2-5.4) 04/05/25 12:40 04/05/25 Hgb 14.5 g/dL (12.0-15.0) 04/05/25 12:40 04/05/25 Hct 42.8 % (37-47) 04/05/25 12:40 04/05/25 Plt Count 314 K/mm3 (150-450) 04/05/25 12:40 04/05/25 CHEMISTRY Potassium 4.6 mmol/L (3.3-5.1) 04/05/25 12:40 04/05/25 Sodium 136 mmol/L (133-145) 04/05/25 12:40 04/05/25 Magnesium 2.2 mg/dL (1.5-2.2) 04/05/25 12:40 04/05/25 Phosphorus 4.2 mg/dL (2.7-4.5) 04/05/25 12:40 04/05/25 BUN 12 mg/dL (4-19) 04/05/25 12:40 04/05/25 Creatinine 0.60 mg/dL (0.70-1.20) L 04/05/25 12:40 04/05/25 Glucose 107 mg/dL (70-99) H 04/05/25 12:40 04/05/25 TSH 2.330 uIU/mL (0.358-3.740) 09/01/24 10:34 09/01/24 COAG PT 12.7 SECONDS (11.7-14.9) 03/16/25 08:08 03/16/25 Pre-Assessment Diagnosis/Proposed Procedure Planned Operative Procedure(s): RIGHT POSSIBLE LEFT INTERJUGULAR PORT Anesthesia History 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 When Was Last Pacemaker Check QUESTION #4 FULL TEXT: You/Your Family Experience fever (hyperthermia) with Anesthesia Last Oral Intake Last Oral intake: Last Oral Intake NPO since 21:00 04/11/25 10:45 Meds taken in AM with sips of Yes 04/11/25 10:45 water? 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 Female Yes 04/10/25 10:36 HX of Motion Sickness No 04/10/25 10:36 HX of N/V After Surgery No 04/10/25 10:36 Non-Smoker Yes 04/10/25 10:36 Duration of Surgery greater No 04/10/25 10:36 than 60 minutes Number of Risk Factors 2 04/10/25 10:36 PONV Score Moderate Risk 04/10/25 10:36 Height & Weight Height & Weight: Anesthesia: Height & Weight Height 5 ft 1 in 04/11/25 10:45 Weight: 67 kg 04/11/25 10:45 Body Mass Index (BMI) 27.8 04/11/25 10:45 Respiratory Assessment Respiratory Assessment - assistant professor of life sciences: Respiratory Tract Infection Hx - assistant professor of life sciences Hx Respiratory Tract Infection No 04/10/25 10:36 STOP Sleep Apnea STOP Sleep Apnea - assistant professor of life sciences: STOP Sleep Apnea - assistant professor of life sciences Hx Hypertension No 04/10/25 10:36 Hx Sleep Apnea Yes 04/10/25 10:36 CPAP Yes 04/10/25 10:36 BIPAP No 04/10/25 10:36 Do you snore loudly (louder than talking or can be heard Do you often feel tired/ fatigued/ sleepy during daytime? Has anyone observed you stop breathing during sleep? STOP Results Positive 04/10/25 10:36 QUESTION #5 FULL TEXT : Do you snore loudly (louder than talking or can be heard through closed doors)? 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 Specify any problems Hx of Preganancy in last 3 No 04/10/25 10:36 Months Nurse Filling Out Transfusion [email or web address] 04/10/25 10:36 & Questions: Date: 04/10/25 04/10/25 10:36 Time: 10:39 04/10/25 10:36 Patient unable to answer at this time (ie. 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: /Reproductive Hx- assistant professor of life sciences Hx Now Gestational Age (in weeks): EDC: Hx Hx Para Hx Section SAB No 01/03/25 11:19 Active Medications Active Medications: Current Medications Generic Name Dose Route Start Last Admin Trade Name Freq PRN Reason Stop Dose Admin Lactated Ringer's 1,000 mls @ 15 mls/hr 04/11/25 11:15 04/11/25 11:15 IV 15 mls/hr .Q48H YELENA Administration PFSH Medical History Metastasis to liver Regional lymph node metastasis present Metastasis to bone Bilateral breast cancer Wears glasses Post-menopausal Depression Alcohol use Thyroid disease Low iron Restless legs Back pain Migraine headache Bloated abdomen History of IBS Former smoker CPAP (continuous positive airway pressure) dependence Constipation Hemorrhoid Home Medications ?Medication ?Instructions ?Recorded ?Last Taken ?Type docusate sodium 50 mg capsule 50 mg PO DAILY 12/18/24 Unknown History ferrous sulfate 325 mg (65 mg 325 mg PO QDAY 12/18/24 Unknown History iron) tablet levothyroxine 75 mcg tablet 75 mcg PO QAM 12/18/24 04/11/25 09:00 History omega 2-sjp-kpj-fish oil 300 1 cap PO QDAY 12/18/24 Unknown History mg-1,000 mg capsule (Fish Oil) duloxetine 60 mg capsule,delayed 60 mg PO DAILY 01/03/25 04/11/25 09:00 History release calcium carbonate (Calcium 600) 600 mg PO BID 02/22/25 Unknown History ondansetron 4 mg disintegrating 4 mg PO Q8H PRN nausea and 03/08/25 Unknown Rx tablet vomiting 10 days #30 tabs acetaminophen 500 mg tablet 1,000 mg PO Q6H PRN pain 04/05/25 Unknown History ibuprofen 400 mg tablet 400 mg PO TID PRN pain 04/05/25 Unknown History oxycodone 5 mg tablet 5 mg PO Q4H PRN PRN pain 04/10/25 Unknown History Allergy/AdvReac Type Severity Reaction Status Date / Time adhesive AdvReac Rash Verified 04/10/25 10:35 Family History Mother Diabetes Grandfather Cancer Surgical History Hx of colonoscopy Hx of arthroscopy of shoulder History of hysterectomy H/O section Social History Smoking Status: Former smoker Tobacco: How many years used: 20 alcohol intake: current alcohol intake frequency: 3 or more drinks per day Alcohol type: beer substance use type: does not use Review of Systems (Anesthesia) ROS Narrative System reviewed and no additional complaints, except as documented. Physical Exam Const alert, oriented x3 and average body habitus Resp normal respiratory effort, normal air movement and clear to auscultation bilaterally Cardio regular rate, regular rhythm, no murmurs and diaphoretic
[2025-04-11] MEDS: Cefazolin 2 GM in 0.9% Normal Saline (100mL Bag) 100 ML IV (11:52)
[2025-04-11] MEDS: Bupivacaine Mpf 0.5% 30 ML VIAL (12:17)
[2025-04-11] MEDS: Lidocaine 1% /Epi 1:100 (20ml) 20 ML Vial (12:18)
--- NOTE | 2025-04-11 12:30 | PCM.POST.ANE ---
Anesthesia: Postop Eval I Current Vital Signs Temperature: 97.5 F Pulse Rate: 75 Blood Pressure: 126/54 Respiratory Rate: 18 Pulse Ox: 96 Oxygen Delivery Method: Room Air Assessment Airway patent: Yes Spontaneous unlabored respirations: Yes Mental status: Awake and Calm nausea: No Vomiting: No Anesthesia Complication: No Fluid Hydration Crystalloid volume administer (ml): 250 Total IV fluid infused: 250 Progress Note Anesthesia document: Postop Eval 1 completed: Yes
--- NOTE | 2025-04-11 12:33 | PCM.OPRPT ---
Operative Report (Standard) Operative Information Date of Procedure: 04/11/25 Pre-Operative Diagnosis: Need for vascular access for chemotherapy Post-Operative Diagnosis: Same Surgery/Procedure Performed: Ultrasound and fluoroscopy guided right chest port placement utilizing right IJ pay per click strategist: No Type of Anesthesia: Local MAC RN Documented Start/Stop Times: Operation Date: 04/11/25 12:00 Case Time Into Pre-Op 04/11/25 10:45 Out of Pre-Op 04/11/25 11:00 Anesthesia Start 04/11/25 11:50 Into Room 04/11/25 11:50 Procedure Start 04/11/25 12:06 Procedure End 04/11/25 12:20 Anesthesia End 04/11/25 12:24 Out of Room 04/11/25 12:24 Procedure Start Time: 12:06 Procedure Stop Time: 12:20 Select all DRAINS/GRAFTS/IMPLANTS that apply: Implanted device Implanted device details: 8 [employer] PowerPort Estimated Blood Loss: 5 Specimen collected: No Description of surgery: After obtaining informed consent patient was brought back to the operating room MAC anesthesia was induced and the right chest and neck were prepped in normal sterile fashion. Ultrasound was used to evaluate both IJs and the right IJ was selected. Next, using a needle, the right IJ was accessed and a guidewire was passed on into the superior vena cava under fluoroscopy guidance. A small incision was made over the puncture site and the dilator introducer was placed over the guidewire. Next this was capped and the pocket was made for the port. 1% lidocaine with epinephrine was injected in the proposed port site. An incision was made with scalpel. Electrocautery was used to make a pocket under the skin and subcutaneous tissue. Hemostasis was obtained. Next, the catheter was tunneled up to the neck incision site and placed through the introducer. The peel-away introducer was removed and the position of the catheter was confirmed on fluoroscopy. Next, the catheter was trimmed and attached to the port with the locking device. Interrupted 2-0 Vicryl sutures were used to anchor the port to the chest wall and then the port was placed inside the pocket. The pocket was then flushed with saline and the port irrigated with saline. There was good blood return and the port flushed easily. Next, heparin was injected into the port. The skin was closed with subcutaneous interrupted 3-0 Vicryl sutures. A single 3-0 Vicryl sutures placed under the skin at the neck incision site. Steri-Strips were placed as well as op sites. Patient tolerated procedure well, was taken to PACU in stable condition. Chest x-ray will be obtained. Surgical Findings: None Complications Complications: No
--- NOTE | 2025-04-11 12:34 | RAD_ITS ---
PROCEDURE: CXR FOR LINE PLACEMENT 04/11/2025 REASON FOR EXAM: LINE PLACEMENT TECHNIQUE: CXR FOR LINE PLACEMENT COMPARISON: Frame Builder from the CT examination of 02/2025. RAD/CXR for Line Placement IMPRESSION: A right subclavian central venous catheter with port is in place, with tip proj ecting over the distal SVC. No pneumothorax is seen. Lungs appear clear. No pleural effusion is seen. The cardiomediastinal silhouette is within the normal range for age. Reading Location: [place] [id number]
--- NOTE | 2025-04-11 12:34 | EX.PCM.DISCH ---
Discharge Instructions Procedure Port-A-Cath Diet Discharge Diet: Light diet - advance as tolerated (Pain medication may cause nausea. You should typically eat light foods as you take your pain medication.) Activity Discharge Activity: Return to Normal Activity and May Shower (with your bandage in place in 1-2 days after surgery. DO NOT SHOWER WHEN YOUR PORT IS ACCESSED.) Dressing / Incision Call your doctor if your incision/area has: Continuous Slow Oozing, Sudden Increased Bleeding, Increased Pain/ Swelling, Increased Redness and Foul Smelling Discharge Call your doctor if you observe: Fever of 101 or Higher Remove Dressing in: 2 days Cleanse incision/area with: Soap & Water Follow Up Care Please Follow Up With: Sunil Lerner MD When: as needed [phone] Test Results: Test results from this visit will be discussed in further detail at your follow-up appointment, if applicable. Discharge Plan Admission Attending Provider: Sunil Lerner Primary Care Provider: Jolanta Juarez Instructions Print Language: Upper Sorbian Discharge Orders/Prescriptions Prescriptions: No Action levothyroxine 75 mcg tablet 75 mcg PO QAM docusate sodium 50 mg capsule 50 mg PO DAILY omega 6-gne-pcw-fish oil [Fish Oil] 300-1,000 mg capsule 1 cap PO QDAY ferrous sulfate 325 mg (65 mg iron) tablet 325 mg PO QDAY calcium carbonate [Calcium 600] 600 mg calcium (1,500 mg) tablet 600 mg PO BID ibuprofen 400 mg tablet 400 mg PO TID PRN (Reason: pain) ondansetron 4 mg tablet,disintegrating 4 mg PO Q8H PRN (Reason: nausea and vomiting) 10 Days Qty: 30 4RF acetaminophen 500 mg tablet 1,000 mg PO Q6H PRN (Reason: pain) duloxetine 60 mg capsule,delayed release(DR/EC) 60 mg PO DAILY oxycodone 5 mg tablet 5 mg PO Q4H PRN PRN (Reason: pain) Referrals / Follow Up: Jolanta Juarez, [facility] [Primary Care Provider] - Disposition Disposition (needs filled in before D/C Order can be placed): Home, Self Care
--- NOTE | 2025-04-11 14:58 | POSTOPAN2_ITS ---
Anesthesia Postop Eval I Sum Postop Eval Completion status Anesthesia document: Postop Eval 1 completed: Yes Anesthesia Postop Eval I Summary Anesthesia Postop Eval I Summary: Anesthesia Postop Eval I: Assessment Summary Airway patent Yes 04/11/25 12:31 SURGICAL CLINICAL [email or web address] Spontaneous unlabored Yes 04/11/25 12:31 SURGICAL CLINICAL REVIEWER.[email or web address] respirations Mental status Awake,Calm 04/11/25 12:31 SURGICAL CLINICAL REVIEWER.[email or web address] nausea No 04/11/25 12:31 SURGICAL CLINICAL REVIEWER.[email or web address] Vomiting No 04/11/25 12:31 SURGICAL CLINICAL REVIEWER.[email or web address] Anesthesia Postop Eval I: Fluid Summary Crystalloid volume administer 250 04/11/25 12:31 SURGICAL CLINICAL REVIEWER.[email or web address] (ml) Colloids volume administered ( ml) Blood Product volume administered (ml) Total IV fluid infused 250 04/11/25 12:31 SURGICAL CLINICAL REVIEWER.[email or web address] Anesthesia Postop Eval I: Summary Notes Anesthesia Complication No 04/11/25 12:31 SURGICAL CLINICAL REVIEWER.[email or web address] Anesthesia Complication Comment: Post-operative progress note Anesthesia: Postop Eval II Evaluation Mental status: Awake Pain Level: 0 nausea: No Vomiting: No Complications Anesthesia Complication: No
--- NOTE | 2025-04-11 14:58 | PCM.POSTANE2 ---
Anesthesia Postop Eval I Sum Postop Eval Completion status Anesthesia document: Postop Eval 1 completed: Yes Anesthesia Postop Eval I Summary Anesthesia Postop Eval I Summary: Anesthesia Postop Eval I: Assessment Summary Airway patent Yes 04/11/25 12:31 WARD SERVICE [email or web address] Spontaneous unlabored Yes 04/11/25 12:31 WARD SERVICE SUPERVISOR.[email or web address] respirations Mental status Awake,Calm 04/11/25 12:31 WARD SERVICE SUPERVISOR.[email or web address] nausea No 04/11/25 12:31 WARD SERVICE SUPERVISOR.[email or web address] Vomiting No 04/11/25 12:31 WARD SERVICE SUPERVISOR.[email or web address] Anesthesia Postop Eval I: Fluid Summary Crystalloid volume administer 250 04/11/25 12:31 WARD SERVICE SUPERVISOR.[email or web address] (ml) Colloids volume administered ( ml) Blood Product volume administered (ml) Total IV fluid infused 250 04/11/25 12:31 WARD SERVICE SUPERVISOR.[email or web address] Anesthesia Postop Eval I: Summary Notes Anesthesia Complication No 04/11/25 12:31 WARD SERVICE SUPERVISOR.[email or web address] Anesthesia Complication Comment: Post-operative progress note Anesthesia: Postop Eval II Evaluation Mental status: Awake Pain Level: 0 nausea: No Vomiting: No Complications Anesthesia Complication: No
== END 2025-04-11 13:24 | disposition home or self-care (01) ==
LOC: SDC 10:25 → AC 10:25
PROVIDERS: PCP Nurse Practitioner Family; Referring Provider Surgery; Visit Provider Surgery
PROC: (CPT 36561; principal; 2025-04-11 11:45)
DX: Z45.2 Encounter for adjustment and management of vascular access device (principal); C78.7 Secondary malignant neoplasm of liver and intrahepatic bile duct; C79.89 Secondary malignant neoplasm of other specified sites; D3A.8 Other benign neuroendocrine tumors; C50.911 Malignant neoplasm of unspecified site of right female breast; C50.912 Malignant neoplasm of unspecified site of left female breast; Z79.890 Hormone replacement therapy; Z87.891 Personal history of nicotine dependence; Z79.899 Other long term (current) drug therapy; E03.9 Hypothyroidism, unspecified; F32.A Depression, unspecified; F41.9 Anxiety disorder, unspecified
CPT/HCPCS: 36561; 00532; 71045; 77001; C1788

== ENCOUNTER → 2025-07-09 | Outpatient (CLI) | payer OTHER, SELFPAY ==
--- NOTE | 2025-07-09 08:19 | CT_ITS ---
PROCEDURE: CT CHEST, ABD, PEL W/CONTRAST 07/09/2025 REASON FOR EXAM: F/U METS BREAST CANCER IV CONTRAST ONLY TECHNIQUE: Chest, abdomen and pelvis CT with intravenous contrast. Coronal and Sagittal reconstruction series were provided. One or more dose reduction techniques were used (e.g., Automated exposure control, adjustment of the mA and/or kV according to patient size, use of iterative reconstruction technique. PATIENT PREPARATION: Per protocol CONTRAST: Isovue-300 VOLUME: 100mL RADIATION DOSE SUMMARY: DLP: 1071 mGycm COMPARISON: PET-CT dated April 10, [address] of the chest abdomen and pelvis of Mar 14 2025 FINDINGS: CT CHEST: There is a chest port through a right IJ approach with the tip in the superior vena cava. The base of the neck is remarkable for extensive supraclavicular axillary in mediastinal lymphadenopathy. There are numerous lymph nodes in the left chest wall and supraclavicular area of the largest measuring 13 x 19 mm. These are stable since the previous PET-CT. Numerous enhancing nodules are seen throughout both breasts. These are consistent with PET avid lesions demonstrated on the recent study of 04/10/2025. AP window lymph nodes are stable. Atherosclerosis of the aorta is again demonstrated. There is mild ectasia of the ascending aorta but no aneurysm. Central pulmonary arteries appear patent. Remainder of the mediastinal structures are normal with coronary artery calcifications present. No pericardial effusion seen. No pleural effusion or pneumothorax present. The lungs are clear. There is no suspicious pulmonary nodule or mass. The airways patent. CT ABDOMEN/PELVIS: Again demonstrated are multiple liver masses consistent with liver metastases. The largest liver lesion is seen in the left lobe, segment 4, and measures 56 x 50 mm. These lesions remain stable since previous exams. No biliary ductal dilatation seen. Patent portal vein present. Bilateral adrenal masses are again demonstrated. These are consistent with metastatic the pulses as noted on PET. Retroperitoneal lymphadenopathy is again demonstrated. Numerous collateral venous structure seen to the left of the aorta. The gallbladder, pancreas, and spleen appear normal. The kidneys enhance symmetrically. There is a left renal cysts which remain stable since previous exams. No hydronephrosis or urolithiasis seen. The urinary bladder is decompressed but appears normal. The patient is status post hysterectomy. No adnexal mass demonstrated. No pelvic lymphadenopathy seen. Loops of bowel are within normal limits. There is no obstruction. Moderate amount of stool seen in the colon. An anterior abdominal wall hernia containing fat is demonstrated. Extensive lytic and sclerotic lesions are present throughout the skeleton similar to previous exam. No acute fracture seen. CT/CT Chest, Abd, Pel w/Contrast IMPRESSION: Diffuse bony metastatic disease. Extensive liver metastases, stable since previous exam. Numerous enhancing nodules throughout both breasts consistent with areas of hyp ermetabolic activity on PET with lymphadenopathy in the supraclavicular area and mediastinum as well as throughout the left ches t wall and retroperitoneum, stable. Bilateral adrenal masses consistent with metastases., stable Reading Location: [id number]
[2025-07-09] MEDS: 0.9% Saline Lock 10 ML Syringe IV (08:25)
== END | disposition home or self-care (01) ==
LOC: CT 08:19
PROVIDERS: PCP Nurse Practitioner Family; Referring Provider Internal Medicine Hematology & Oncology; Visit Provider Internal Medicine Hematology & Oncology
DX: C50.811 Malignant neoplasm of overlapping sites of right female breast (principal); C79.51 Secondary malignant neoplasm of bone; C50.812 Malignant neoplasm of overlapping sites of left female breast; Z17.1 Estrogen receptor negative status [ER-]
CPT/HCPCS: 71260; 74177; Q9967

== ENCOUNTER 2025-07-24 08:11 | Emergency (ER) | payer OTHER, SELFPAY ==
[2025-07-24 08:12] VITALS: BP 137/95; PULSE 67; RESP 20; TEMP 36.6; O2SAT 99
[2025-07-24 08:20] VITALS: BMI 28.8
--- NOTE | 2025-07-24 08:56 | CT_ITS ---
PROCEDURE: SPINE LUMBAR WITHOUT CONTRAST 07/24/2025 REASON FOR EXAM: ACUTE ON CHRONIC PAIN, KNOWN METS TECHNIQUE: Procedure Code: CTSPL Modality: CT Procedure: SPINE LUMBAR WITHOUT CONTRAST Coronal and Sagittal reconstruction series were provided. One or more dose reduction techniques were used (e.g., Automated exposure control, adjustment of the mA and/or kV according to patient size, use of iterative reconstruction technique COMPARISON: Lumbar spine dated February 13, 2025. RADIATION DOSE SUMMARY: CTDlvol: 26.25 mGy DLP: 696.93 mGycm FINDINGS: Vertebrae: Sclerotic metastasis involving the T11, L2, L3, L4 vertebrae. Metastasis to the sacrum. Loss of height of the superior endplate of the L1 vertebrae and prior vertebroplasty at that level. Alignment: No evidence of scoliosis. L1-2: Vertebroplasty of the L1 vertebrae with loss of height of the superior endplate. Sclerotic metastasis. L2-3: Sclerotic metastasis of the L2 vertebrae extending to the left pedicle. No evidence of spinal stenosis. L3-4: Sclerotic metastasis. Mild degree of facet joint osteoarthritis. Mild degree of diffuse posterior disc bulge. L4-5: Sclerotic metastasis. Facet joint osteoarthritis and hypertrophy worse on the left side. Mild degree of diffuse posterior disc bulge. Narrowing of the intervertebral foramen worse on the left side. L5-S1: Sclerotic metastasis. Facet joint osteoarthritis and hypertrophy. No significant stenosis. Sacrum: Diffuse sclerotic metastasis. Sclerotic metastasis involving both iliac bones. CT/Spine Lumbar without Contrast IMPRESSION: Diffuse sclerotic metastasis as described. Mild degree of left intervertebral foramen at the L4-L5 level. Loss of height of the L1 vertebrae with prior vertebroplasty. Reading Location: [facility]
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
[2025-07-24 10:11] VITALS: BP 166/91; PULSE 76; RESP 14; O2SAT 98
[2025-07-24 11:07] VITALS: BP 170/64; PULSE 89; RESP 14; TEMP 36.8; O2SAT 98
== END 2025-07-24 11:22 | disposition home or self-care (01) ==
PROVIDERS: Emergency Provider Emergency Medicine; PCP Nurse Practitioner Family; Visit Provider Emergency Medicine
DX: C79.51 Secondary malignant neoplasm of bone (principal); C78.7 Secondary malignant neoplasm of liver and intrahepatic bile duct; C79.81 Secondary malignant neoplasm of breast; Z87.891 Personal history of nicotine dependence; G89.29 Other chronic pain; M48.00 Spinal stenosis, site unspecified; Z79.890 Hormone replacement therapy; E07.9 Disorder of thyroid, unspecified; M51.369 Other intervertebral disc degeneration, lumbar region without mention of lumbar back pain or lower extremity pain
CPT/HCPCS: 36591; 72131; 96374; 96375; 99285; A4216; J2405

== ENCOUNTER → 2025-10-17 | Outpatient (CLI) | payer OTHER, MEDICAID, SELFPAY ==
--- NOTE | 2025-10-17 14:53 | CT_ITS ---
PROCEDURE: CT CHEST, ABD, PEL W/CONTRAST 10/17/2025 REASON FOR EXAM: MET BREAST CANCER; ASSESS RESPONSE TO TREATMENT TECHNIQUE: Chest, abdomen and pelvis CT with intravenous contrast. Coronal and Sagittal reconstruction series were provided. One or more dose reduction techniques were used (e.g., Automated exposure control, adjustment of the mA and/or kV according to patient size, use of iterative reconstruction technique. PATIENT PREPARATION: Per protocol ORAL CONTRAST TYPE: None. CONTRAST: Isovue-350 VOLUME: 100mL RADIATION DOSE SUMMARY: CTDlvol: 13.24 mGy DLP: 568 mGycm COMPARISON: CT scan on 07/09/2025. FINDINGS: CT CHEST: There is a chest port through a right IJ approach with the tip in the superior vena cava. There is significant decrease of the previously described extensive supraclavicular axillary with mild decrease in mediastinal lymphadenopathy. There are numerous lymph nodes in the left chest wall and supraclavicular area of the largest measuring 10.8 x 9.5 mm (previously 13 x 19 mm). Numerous enhancing nodules are seen throughout both breasts have decreased. AP window lymph nodes have mildly decreased. Atherosclerosis of the aorta is again demonstrated. There is mild ectasia of the ascending aorta but no aneurysm. Central pulmonary arteries appear patent. Remainder of the mediastinal structures are normal with coronary artery calcifications present. No pericardial effusion seen. No pleural effusion or pneumothorax present. The lungs are clear. There is no suspicious pulmonary nodule or mass. The airways patent. CT ABDOMEN/PELVIS: Decrease in the size of the previously described multiple liver masses consistent with liver metastases. The largest liver lesion is seen in the left lobe, segment 4, and measures 45 x 41 mm (previously 56 x 50 mm). No biliary ductal dilatation seen. Patent portal vein present. Bilateral adrenal masses are again demonstrated with a significant necrosis in the interim. These are consistent with metastatic adrenals nodule showing necrosis. Retroperitoneal lymphadenopathy is again demonstrated. Numerous collateral venous structure seen to the left of the aorta. The gallbladder, pancreas, and spleen appear normal. The kidneys enhance symmetrically. There is a left renal cysts which remain stable since previous exams. No hydronephrosis or urolithiasis seen. The urinary bladder is decompressed but appears normal. The patient is status post hysterectomy. No adnexal mass demonstrated. No pelvic lymphadenopathy seen. Loops of bowel are within normal limits. There is no obstruction. Moderate amount of stool seen in the colon. An anterior abdominal wall hernia containing fat is demonstrated. Extensive lytic and sclerotic lesions are present throughout the skeleton similar to previous exam. No acute fracture seen. CT/CT Chest, Abd, Pel w/Contrast IMPRESSION: Diffuse bony metastatic disease, unchanged. Extensive liver metastases, decreased in size since the prior exam. Numerous enhancing nodules throughout both breasts consistent with areas of hyp ermetabolic activity on PET with lymphadenopathy in the supraclavicular area and mediastinum as well as throughout the left ches t wall and retroperitoneum, decreased. Bilateral adrenal masses consistent with metastases, significant necrosis in e interim, probably secondary to response to treatment. Reading Location: [id number]
[2025-10-17] MEDS: 0.9% Saline Lock 10 ML Syringe IV (15:06)
== END | disposition home or self-care (01) ==
LOC: CT 14:52
PROVIDERS: PCP Nurse Practitioner Family; Referring Provider Nurse Practitioner Family; Visit Provider Nurse Practitioner Family
DX: C50.811 Malignant neoplasm of overlapping sites of right female breast (principal); C78.7 Secondary malignant neoplasm of liver and intrahepatic bile duct; C79.51 Secondary malignant neoplasm of bone; C50.812 Malignant neoplasm of overlapping sites of left female breast; Z17.1 Estrogen receptor negative status [ER-]
CPT/HCPCS: 71260; 74177; Q9967; A4216